=== PATIENT | male | born 1975 | race Caucasian/White ===

== ENCOUNTER 2017-05-31 22:06 | Observation (INO) | payer BC ==
[2017-05-31] MEDS ORDERED: Sodium Chloride 0.9% 1000 ML 1,000 ML IV STA (22:30)
[2017-05-31] MEDS ORDERED: TYLENOL 325 MG PO ONE (22:32)
[2017-05-31] MEDS ORDERED: TYLENOL 325 MG ONE (22:41)
[2017-05-31] MEDS ORDERED: Sodium Chloride 0.9% 1000 ML 1,000 ML ONE ×2 (22:41→23:59)
[2017-05-31 22:58] LABS: BASOPHIL % 0.1 % (0.0-0.4); Eosinophil % 0.1 % (0.00-5.0); Granulocytes % 84.6 % (36.0-66.0); Lymphocytes % 7.9 % (24.0-44.0); Mean Cell Volume 81.7 fl (78-100); Mean Corpuscular Hemoglobin 28.4 pg (26-32); Mean Platelet Volume 9.4 fl (6-9.5); Monocytes % 7.3 % (0.0-12.0); Platelet Count 203 K/mm3 (150-450); Red Blood Count 5.25 M/mm3 (4.1-5.6); Red Cell Distribution Width 13.6 % (11.5-14.0)
--- NOTE | 2017-05-31 23:15 | ERPHSYRPT ---
- History of Present Illness Source: patient, family (mom) Patient Subjective Stated Complaint: "i think i might have over heated today. i have been feeling really hot, sore throat, shakes, it egan when i peed. 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 No previous history of heat stroke. The still slightly dizzy but has not actually passed out. Brought to ER with his mother. No chest pain shortness of breath. Timing/Duration: today Fever Severity: severe Fever Therapy POWER PRESS TENDER: none Associated Symptoms: diaphoresis, muscle aches, sore throat, weakness International travel in last 2 weeks: No (doses) Allergies/Adverse Reactions: Penicillins Allergy (Verified 05/31/17 22:15) Home Medications: No Reportable Medications [No Reported Medications] 05/31/17 [History] - Review of Systems Constitutional: Fever, Chills, Fatigue, Lethargy, Malaise, Weakness Eyes: No Symptoms Ears, Nose, & Throat: No Symptoms Respiratory: No Symptoms Cardiac: No Symptoms Abdominal/Gastrointestinal: Nausea (TRANSIENT) Genitourinary Symptoms: No Symptoms Musculoskeletal: Myalgias Skin: No Symptoms Neurological: Headache (MILD), Lethargy Psychological: No Symptoms Endocrine: No Symptoms Hematologic/Lymphatic: No Symptoms Immunological/Allergic: No Symptoms (5) All Other Systems: Reviewed and Negative - Past Medical History Pertinent Past Medical History: No - Past Surgical History Past Surgical History: Yes Other Surgical History: bacl surgery - Social History Smoking Status: Never smoker Drug Use: none - Nursing Vital Signs Nursing Vital Signs: Initial Vital Signs Temperature 99.2 F 05/31/17 22:11 Pulse Rate 98 H 05/31/17 22:11 Respiratory Rate 16 05/31/17 22:11 Blood Pressure 164/86 05/31/17 22:11 O2 Sat by Pulse Oximetry 96 05/31/17 22:11 Pain Scale Pain Intensity 0 - Physical Exam General Appearance: moderate distress, alert, other (diaphoretic) Eye Exam: PERRL/EOMI ENT Exam: pharyngeal erythema Neck Exam: normal inspection, non-tender, supple, full range of motion, trachea midline, No JVD, No limited range of motion, No Brudzinski's sign Respiratory Exam: chest non-tender, lungs clear, decreased air movement Cardiovascular/Chest Exam: normal heart sounds, regular rate/rhythm Gastrointestinal/Abdominal Exam: soft, non tender, no distention Male Genitalia: normal genitalia Rectal Exam: deferred Extremity Exam: non-tender, normal range of motion, normal inspection Neurologic Exam: 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, 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 tested Skin Exam: normal color, warm, dry, No rash Lymphatic: No adenopathy SpO2 Interpretation: normal SpO2: 96 Oxygen Delivery: Room Air - Course Nursing assessment & vital signs reviewed: Yes EKG Interpreted by Me: RATE (85), Sinus Rhythm, NORMAL AXIS, NORMAL INTERVALS, NORMAL QRS, Non-specific ST Changes, Other (no previous for comparison) - Radiology Exams Chest X-ray Interpretation: Reviewed by me, Discussed w/ radiologist, Negative Ordered Tests: Active Orders 24 hr Category Date Time Status Admission/Status Order ROUTINE Care 06/01/17 03:21 Active Commutator Tester STAT Care 05/31/17 22:30 Active Code Status Order ROUTINE Care 06/01/17 03:21 Active EKG-ER Only STAT Care 05/31/17 22:30 Completed IV Care Q6H Care 06/01/17 03:21 Active IV Insertion STAT Care 05/31/17 22:30 Completed Oxygen-ED Only NASAL CANNULA 2 lpm Care 05/31/17 22:33 Active Pulse Oximetry (ED) STAT Care 05/31/17 22:57 Active CHEST 1 VIEW (PORTABLE) Stat Exams 05/31/17 23:34 Taken BLOOD CULTURE Stat Lab 05/31/17 22:53 Received CBC W DIFF AM.LAB Lab 06/01/17 04:00 Ordered CBC W DIFF Stat Lab 05/31/17 22:52 Completed CK-Creatinine Phosphokinase Stat Lab 05/31/17 22:52 Completed CMP AM.LAB Lab 06/01/17 04:00 Ordered CMP Stat Lab 05/31/17 22:52 Completed CULTURE, THROAT Stat Lab 05/31/17 22:54 Received Lactic Acid AM.LAB Lab 06/01/17 04:00 Ordered Lactic Acid Stat Lab 05/31/17 22:50 Completed MAGNESIUM AM.LAB Lab 06/01/17 04:00 Ordered MAGNESIUM Stat Lab 05/31/17 22:52 Completed STREP SCREEN-BETA A Stat Lab 05/31/17 22:54 Completed TROPONIN Q3H Lab 05/31/17 22:53 Completed UA W/ MICROSCOPIC Stat Lab 05/31/17 22:52 Completed Oxygen NASAL CANNULA 2 lpm RT 06/01/17 03:21 Active Transfer Order Routine Transfer 06/01/17 01:55 Completed Medication Summary Generic Name Dose Route Start Last Admin Trade Name Reina PRN Reason Stop Dose Admin Acetaminophen 650 mg 06/01/17 02:03 Tylenol 325 Mg PO 07/01/17 02:02 Q6H PRN PRN PAIN AND/OR FEVER Lactated Ringer's 1,000 mls @ 125 mls/hr 06/01/17 03:21 06/01/17 03:27 Lactated Ringers IV 07/01/17 03:20 125 mls/hr .Q8H RACHELLE Administration Meropenem 1 g/ Sodium Chloride 100 mls @ 200 mls/hr 06/01/17 06:00 IV 07/01/17 05:59 Q8HT RACHELLE Ondansetron HCl 4 mg 06/01/17 03:21 Zofran 4 Mg/2 Ml Vial IV 07/01/17 03:20 Q6H PRN PRN NAUSEA/VOMITING Discontinued Medications Generic Name Dose Route Start Last Admin Trade Name Reina PRN Reason Stop Dose Admin Acetaminophen 975 mg 05/31/17 22:32 05/31/17 22:43 Tylenol 325 Mg PO 05/31/17 22:33 975 mg STAT ONE Administration Acetaminophen Confirm 05/31/17 22:41 Tylenol 325 Mg Administered 05/31/17 22:42 Dose 975 mg .ROUTE .STK-MED ONE Sodium Chloride 1,000 mls @ 999 mls/hr 05/31/17 22:30 05/31/17 22:43 Sodium Chloride 0.9% 1000 Ml IV 05/31/17 23:30 999 mls/hr .Q1H1M STA Administration Sodium Chloride Confirm 05/31/17 22:41 Sodium Chloride 0.9% 1000 Ml Administered 05/31/17 22:42 Dose 1,000 mls @ ud .ROUTE .STK-MED ONE Meropenem 1 g/ Sodium Chloride 100 mls @ 200 mls/hr 05/31/17 23:54 06/01/17 00:12 IV 06/01/17 00:23 200 mls/hr STAT STA Administration Lactated Ringer's 1,000 mls @ 999 mls/hr 05/31/17 23:58 06/01/17 00:11 Lactated Ringers IV 06/01/17 00:58 999 mls/hr .Q1H1M ONE Administration Sodium Chloride Confirm 05/31/17 23:59 Sodium Chloride 0.9% 1000 Ml Administered 06/01/17 00:00 Dose 1,000 mls @ ud .ROUTE .STK-MED ONE Sodium Chloride Confirm 05/31/17 23:59 Sodium Chloride 0.9% 100 Ml Ivpb Administered 06/01/17 00:00 Dose 100 mls @ ud IV .STK-MED ONE Sodium Chloride 1,000 mls @ 999 mls/hr 06/01/17 00:07 06/01/17 00:09 Sodium Chloride 0.9% 1000 Ml IV 06/01/17 01:07 Not Given .Q1H1M STA Lactated Ringer's Confirm 06/01/17 00:10 Lactated Ringers Administered 06/01/17 00:11 Dose 1,000 mls @ ud IV .STK-MED ONE Magnesium Oxide 400 mg 06/01/17 00:38 06/01/17 00:58 Mag-Ox 400 PO 06/01/17 00:39 400 mg STAT STA Administration Magnesium Oxide Confirm 06/01/17 00:57 Mag-Ox 400 Administered 06/01/17 00:58 Dose 400 mg .ROUTE .STK-MED ONE Meropenem Confirm 05/31/17 23:59 Merrem 1 Gm Administered 06/01/17 00:00 Dose 1 g IV .STK-MED ONE Lab/Rad Data: Laboratory Result Diagrams 05/31/17 22:52 05/31/17 22:52 Laboratory Results 05/31/17 05/31/17 05/31/17 Range/Units 23:34 22:54 22:53 WBC (4.0-10.5) K/mm3 RBC (4.1-5.6) M/mm3 Hgb (12.5-18.0) gm/dl Hct (42-50) % MCV (78-100) fl MCH (26-32) pg MCHC (32-36) g/dl RDW (11.5-14.0) % Plt Count (150-450) K/mm3 MPV (6-9.5) fl Gran % (36.0-66.0) % Lymphocytes % (24.0-44.0) % Monocytes % (0.0-12.0) % Eosinophils % (0.00-5.0) % Basophils % (0.0-0.4) % Basophils # (0-0.4) Sodium (136-145) mEq/L Potassium (3.5-5.1) mEq/L Chloride (98-107) mEq/L Carbon Dioxide (21-32) mEq/L Anion Gap (5-15) MEQ/L BUN (9-20) mg/dL Creatinine (0.55-1.30) mg/dl Estimated GFR ML/MIN Glucose (70-110) MG/DL Lactic Acid (0.4-2.0) Calcium (8.5-10.1) mg/dL Magnesium (1.8-2.4) mg/dL Total Bilirubin (0.2-1.0) mg/dL AST (15-37) U/L ALT (12-78) U/L Alkaline Phosphatase (46-116) U/L Creatine Kinase (39-308) U/L Troponin I < 0.017 (0.000-0.056) ng/ml Serum Total Protein (6.4-8.2) gm/dL Albumin (3.4-5.0) g/dL Ur Collection Type Urine Color (YELLOW) Urine Appearance (CLEAR) Urine pH (5-6) Ur Specific Bally (1.005-1.025) Urine Protein (Negative) Urine Ketones (NEGATIVE) Urine Blood (0-5) Bentley/ul Urine Nitrite (NEGATIVE) Urine Bilirubin (NEGATIVE) Urine Urobilinogen (0-1) mg/dL Ur Leukocyte Esterase (NEGATIVE) Urine Microscopic RBC (0-2) /HPF Urine Microscopic WBC (0-5) /HPF Ur Epithelial Cells (FEW) /HPF Urine Bacteria (NEGATIVE) /HPF Urine Glucose (NEGATIVE) mg/dL Influenza Type A Ag NEGATIVE (NEGATIVE) Influenza Type B Ag NEGATIVE (NEGATIVE) RSV (PCR) NEGATIVE (Negative) Streptococcus Screen NEGATIVE (Negative) Specimen Received 07/19/17 07/19/17 07/19/17 Range/Units 22:52 22:52 22:52 WBC (4.0-10.5) K/mm3 RBC (4.1-5.6) M/mm3 Hgb (12.5-18.0) gm/dl Hct (42-50) % MCV (78-100) fl MCH (26-32) pg MCHC (32-36) g/dl RDW (11.5-14.0) % Plt Count (150-450) K/mm3 MPV (6-9.5) fl Gran % (36.0-66.0) % Lymphocytes % (24.0-44.0) % Monocytes % (0.0-12.0) % Eosinophils % (0.00-5.0) % Basophils % (0.0-0.4) % Basophils # (0-0.4) Sodium 137 (136-145) mEq/L Potassium 3.7 (3.5-5.1) mEq/L Chloride 101 (98-107) mEq/L Carbon Dioxide 25.1 (21-32) mEq/L Anion Gap 14.5 (5-15) MEQ/L BUN 18 (9-20) mg/dL Creatinine 1.46 H (0.55-1.30) mg/dl Estimated GFR 56 ML/MIN Glucose 128 H (70-110) MG/DL Lactic Acid (0.4-2.0) Calcium 9.1 (8.5-10.1) mg/dL Magnesium 1.5 L (1.8-2.4) mg/dL Total Bilirubin 1.20 H (0.2-1.0) mg/dL AST 17 (15-37) U/L ALT 22 (12-78) U/L Alkaline Phosphatase 56 (46-116) U/L Creatine Kinase 212 (39-308) U/L Troponin I (0.000-0.056) ng/ml Serum Total Protein 7.3 (6.4-8.2) gm/dL Albumin 4.0 (3.4-5.0) g/dL Ur Collection Type VOID Urine Color YELLOW (YELLOW) Urine Appearance CLEAR (CLEAR) Urine pH 5.0 (5-6) Ur Specific Bally 1.015 (1.005-1.025) Urine Protein NEGATIVE (Negative) Urine Ketones SMALL (NEGATIVE) Urine Blood 50 (0-5) Bentley/ul Urine Nitrite NEGATIVE (NEGATIVE) Urine Bilirubin NEGATIVE (NEGATIVE) Urine Urobilinogen NORMAL (0-1) mg/dL Ur Leukocyte Esterase NEGATIVE (NEGATIVE) Urine Microscopic RBC 2-5 (0-2) /HPF Urine Microscopic WBC 0-2 (0-5) /HPF Ur Epithelial Cells FEW (FEW) /HPF Urine Bacteria FEW (NEGATIVE) /HPF Urine Glucose NEGATIVE (NEGATIVE) mg/dL Influenza Type A Ag (NEGATIVE) Influenza Type B Ag (NEGATIVE) RSV (PCR) (Negative) Streptococcus Screen (Negative) Specimen Received 05/31/17 2300 05/31/17 05/31/17 Range/Units 22:52 22:50 WBC 18.0 H (4.0-10.5) K/mm3 RBC 5.25 (4.1-5.6) M/mm3 Hgb 14.9 (12.5-18.0) gm/dl Hct 42.9 (42-50) % MCV 81.7 (78-100) fl MCH 28.4 (26-32) pg MCHC 34.7 (32-36) g/dl RDW 13.6 (11.5-14.0) % Plt Count 203 (150-450) K/mm3 MPV 9.4 (6-9.5) fl Gran % 84.6 H (36.0-66.0) % Lymphocytes % 7.9 L (24.0-44.0) % Monocytes % 7.3 (0.0-12.0) % Eosinophils % 0.1 (0.00-5.0) % Basophils % 0.1 (0.0-0.4) % Basophils # 0.02 (0-0.4) Sodium (136-145) mEq/L Potassium (3.5-5.1) mEq/L Chloride (98-107) mEq/L Carbon Dioxide (21-32) mEq/L Anion Gap (5-15) MEQ/L BUN (9-20) mg/dL Creatinine (0.55-1.30) mg/dl Estimated GFR ML/MIN Glucose (70-110) MG/DL Lactic Acid 0.8 (0.4-2.0) Calcium (8.5-10.1) mg/dL Magnesium (1.8-2.4) mg/dL Total Bilirubin (0.2-1.0) mg/dL AST (15-37) U/L ALT (12-78) U/L Alkaline Phosphatase (46-116) U/L Creatine Kinase (39-308) U/L Troponin I (0.000-0.056) ng/ml Serum Total Protein (6.4-8.2) gm/dL Albumin (3.4-5.0) g/dL Ur Collection Type Urine Color (YELLOW) Urine Appearance (CLEAR) Urine pH (5-6) Ur Specific Bally (1.005-1.025) Urine Protein (Negative) Urine Ketones (NEGATIVE) Urine Blood (0-5) Bentley/ul Urine Nitrite (NEGATIVE) Urine Bilirubin (NEGATIVE) Urine Urobilinogen (0-1) mg/dL Ur Leukocyte Esterase (NEGATIVE) Urine Microscopic RBC (0-2) /HPF Urine Microscopic WBC (0-5) /HPF Ur Epithelial Cells (FEW) /HPF Urine Bacteria (NEGATIVE) /HPF Urine Glucose (NEGATIVE) mg/dL Influenza Type A Ag (NEGATIVE) Influenza Type B Ag (NEGATIVE) RSV (PCR) (Negative) Streptococcus Screen (Negative) Specimen Received - Progress Progress: improved, re-examined Progress Note: 06/01/17 01:37Decrease in temperature and patient feeling much improved with no further diaphoresis. Moderately severe hypomagnesemia. Elevated white blood cell count with left shift but no source of infection noted but started on broad -spectrum antibiotic. Case discussed at length with Dr. Khan patient would be admitted observation with continued IV fluids temperature monitoring recheck of a.m. labs which is attributed to the patient. Discussed with : Bill Counseled pt/family regarding: lab results, diagnosis, need for follow-up, rad results - Departure Time of Disposition: 01:34 Departure Disposition: Observation Clinical Impression: Hypomagnesemia, heat-related illness with fever, rule out occult infection/ sepsis Heat exhaustion Qualifiers: Encounter type: initial encounter Qualified Code(s): T67.5XXA - Heat exhaustion , unspecified, initial encounter Condition: Stable Critical Care Time: No
[2017-05-31 23:27] LABS: ADD URINE CULTURE? NO (NO); ANION GAP 14.5 MEQ/L (5-15); BILIRUBIN,TOTAL 1.2 mg/dL (0.2-1.0); Bacteria FEW /HPF (NEGATIVE); Bilirubin NEGATIVE (NEGATIVE); Blood 50 Ery/ul (0-5); COMPLETE URINE MICROSCOPIC? YES; Carbon Dioxide 25.1 mEq/L (21-32); Collection Type VOID; Epithelial Cells FEW /HPF (FEW); Glucose NEGATIVE (NEGATIVE); Leukocyte Esterase NEGATIVE (NEGATIVE); MAGNESIUM 1.5 mg/dL (1.8-2.4); Potassium 3.7 mEq/L (3.5-5.1); Total Protein 7.3 gm/dL (6.4-8.2); WBC 0-2 /HPF (0-5)
[2017-05-31] MEDS ORDERED: Merrem 1 GM 1 G in Sodium Chloride 100ML MINI-BAG PLUS 100 ML IV STA (23:54)
[2017-05-31] MEDS ORDERED: Lactated Ringers 1,000 ML IV ONE (23:58)
[2017-05-31] MEDS ORDERED: Sodium Chloride 0.9% 100 ML IVPB 100 ML IV ONE (23:59)
[2017-05-31] MEDS ORDERED: Merrem 1 GM IV ONE (23:59)
[2017-06-01] MEDS ORDERED: Sodium Chloride 0.9% 1000 ML 1,000 ML IV STA (00:07)
[2017-06-01] MEDS ORDERED: Lactated Ringers 1,000 ML IV ONE (00:10)
[2017-06-01] MEDS ORDERED: MAG-OX 400 PO STA (00:38)
[2017-06-01] MEDS ORDERED: MAG-OX 400 ONE (00:57)
[2017-06-01] MEDS ORDERED: TYLENOL 325 MG PO PRN (02:03)
[2017-06-01] MEDS ORDERED: Zofran 4 MG/2 ML VIAL IV PRN (03:21)
[2017-06-01] MEDS: Lactated Ringers 1,000 ML IV SCH ×3 (03:27→21:12)
[2017-06-01] MEDS ORDERED: Merrem 1 GM IV ONE (05:30)
[2017-06-01] MEDS ORDERED: Sodium Chloride 0.9% 100 ML IVPB 100 ML IV ONE (05:31)
[2017-06-01 05:47] LABS: BASOPHIL % 0.1 % (0.0-0.4); Eosinophil % 0.1 % (0.00-5.0); Granulocytes % 83.8 % (36.0-66.0); Lymphocytes % 8.6 % (24.0-44.0); Mean Cell Volume 82.9 fl (78-100); Mean Corpuscular Hemoglobin 28.8 pg (26-32); Mean Platelet Volume 9.3 fl (6-9.5); Monocytes % 7.4 % (0.0-12.0); Platelet Count 155 K/mm3 (150-450); Red Cell Distribution Width 13.7 % (11.5-14.0); White Blood Count 17.5 K/mm3 (4.0-10.5)
[2017-06-01] MEDS ORDERED: Merrem 1 GM 1 G in Sodium Chloride 100ML MINI-BAG PLUS 100 ML IV SCH (06:00)
[2017-06-01 06:20] LABS: ALBUMIN 3.4 g/dL (3.4-5.0); ALKALINE PHOSPHATASE 51 U/L (46-116); ANION GAP 11.3 MEQ/L (5-15); BLOOD UREA NITROGEN 14 mg/dL (9-20); CHLORIDE 105 mEq/L (98-107); Carbon Dioxide 27.2 mEq/L (21-32); Glucose 104 MG/DL (70-110); MAGNESIUM 1.7 mg/dL (1.8-2.4); SGOT/AST 15 U/L (15-37); SGPT/ALT 21 U/L (12-78); SODIUM 140 mEq/L (136-145); Total Protein 6.4 gm/dL (6.4-8.2)
--- NOTE | 2017-06-01 08:41 | PCM.HP ---
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 He developed a headache, nausea and cramping. He also developed fever so came to the ER for evaluation. - Review of Systems Constitutional: Fever, Chills Respiratory: No Cough, No Short Of Breath Cardiac: No Chest Pain, No Edema, No Syncope Musculoskeletal: Myalgias Skin: No Rash Medications & Allergies Home Medications: Home Medication List No Reportable Medications [No Reported Medications] 05/31/17 [History Confirmed 05/31/17] Allergies/Adverse Reactions: Allergies Allergy/AdvReac Type Severity Reaction Status Date / Time Penicillins Allergy Verified 05/31/17 22:15 - Past Medical History Past Medical History: No - Past Surgical History Past Surgical History: Yes Other Surgical History: bacl surgery - Social History Smoking Status: Never smoker Alcohol: Occasionally Drug Use: none - Physical Exam Vital Signs: Vital Signs - 24 hr Temp Pulse Resp BP BP Pulse Ox 06/01/17 07:29 97.9 F 81 18 137/72 92 L 06/01/17 06:00 19 06/01/17 05:02 96 06/01/17 04:00 98.3 F 74 19 130/71 95 06/01/17 03:45 98 06/01/17 03:25 98.3 F 74 19 130/71 95 06/01/17 02:31 74 14 134/70 99 06/01/17 01:05 98.4 F 90 24 127/82 98 05/31/17 23:56 84 32 H 130/70 97 05/31/17 23:44 95 05/31/17 23:00 101.6 F 84 18 137/68 96 05/31/17 22:11 99.2 F 98 H 16 164/86 96 Oxygen-Last 24 hours O2 Percentage 2 Liters = 28% O2 Percentage 2 Liters = 28% O2 Percentage 2 Liters = 28% O2 Percentage 2 Liters = 28% General Appearance: no apparent distress, alert Neurologic Exam: alert, oriented x 3, cooperative, normal mood/affect, nml cerebellar function, nml station & gait, sensation nml, No motor deficits Eye Exam: PERRL/EOMI, eyes nml inspection Neck Exam: normal inspection, non-tender, supple, full range of motion Respiratory Exam: normal breath sounds, lungs clear, No respiratory distress Cardiovascular Exam: regular rate/rhythm, normal heart sounds, normal peripheral pulses Gastrointestinal/Abdomen Exam: soft, normal bowel sounds, No tenderness, No mass Extremity Exam: normal inspection, normal range of motion, pelvis stable Results - Labs Lab/Micro Results: Lab Results-Last 24 Hours 06/01/17 06/01/17 06/01/17 Range/Units 05:28 05:40 05:40 WBC 17.5 H (4.0-10.5) K/mm3 RBC 4.90 (4.1-5.6) M/mm3 Hgb 14.1 (12.5-18.0) gm/dl Hct 40.6 L (42-50) % MCV 82.9 (78-100) fl MCH 28.8 (26-32) pg MCHC 34.7 (32-36) g/dl RDW 13.7 (11.5-14.0) % Plt Count 155 (150-450) K/mm3 MPV 9.3 (6-9.5) fl Gran % 83.8 H (36.0-66.0) % Lymphocytes % 8.6 L (24.0-44.0) % Monocytes % 7.4 (0.0-12.0) % Eosinophils % 0.1 (0.00-5.0) % Basophils % 0.1 (0.0-0.4) % Basophils # 0.02 (0-0.4) Sodium 140 (136-145) mEq/L Potassium 4.0 (3.5-5.1) mEq/L Chloride 105 (98-107) mEq/L Carbon Dioxide 27.2 (21-32) mEq/L Anion Gap 11.3 (5-15) MEQ/L BUN 14 (9-20) mg/dL Creatinine 1.25 (0.55-1.30) mg/dl Estimated GFR > 60 ML/MIN Glucose 104 (70-110) MG/DL Lactic Acid 0.7 (0.4-2.0) Calcium 8.8 (8.5-10.1) mg/dL Magnesium 1.7 L (1.8-2.4) mg/dL Total Bilirubin 1.20 H (0.2-1.0) mg/dL AST 15 (15-37) U/L ALT 21 (12-78) U/L Alkaline Phosphatase 51 (46-116) U/L Serum Total Protein 6.4 (6.4-8.2) gm/dL Albumin 3.4 (3.4-5.0) g/dL Assessment/Plan (1) Heat exhaustion Current Visit: Yes Status: Acute Qualifiers: Encounter type: initial encounter Qualified Code(s): T67.5XXA - Heat exhaustion, unspecified, initial encounter Assessment & Plan: continue hydration, repeat lytes in am, will replace magnesium. symptoms have improved Code(s): T67.5XXA - HEAT EXHAUSTION, UNSPECIFIED, INITIAL ENCOUNTER (2) Leukocytosis Current Visit: Yes Status: Acute Assessment & Plan: continue abx and repeat cbc in am, stop meropenem due to no obvious infection source, cover emperically with rocephin at this time Code(s): D72.829 - ELEVATED WHITE BLOOD CELL COUNT, UNSPECIFIED (3) Fever Current Visit: Yes Status: Acute Assessment & Plan: blood cultures pending Code(s): R50.9 - FEVER, UNSPECIFIED (4) Hypomagnesemia Current Visit: Yes Status: Acute Assessment & Plan: will continue to replace, up to 1.7 from 1.5 Code(s): E83.42 - HYPOMAGNESEMIA
--- NOTE | 2017-06-01 08:42 | XRAY ---
Indication: Fever, chills, and weakness. Comparison: January 06, 2016. Portable chest again demonstrates normal heart, lungs, and bony thorax with incidental scattered calcified granulomas. Comment: Preliminary interpretation was made by [facility]. No discrepancy.
[2017-06-01] MEDS: ROCEPHIN 1 Gm-D5w 50 ml Bag** 1 G/50 ML IVPB IV SCH (10:53)
[2017-06-01] MEDS: MAG-OX 400 PO SCH ×2 (10:53→22:31)
[2017-06-02] MEDS: Lactated Ringers 1,000 ML IV SCH (05:12)
[2017-06-02 06:01] LABS: Mean Cell Volume 82.9 fl (78-100); Mean Corpuscular Hemoglobin 28.1 pg (26-32); Mean Platelet Volume 9.6 fl (6-9.5); Platelet Count 174 K/mm3 (150-450); Red Blood Count 5.09 M/mm3 (4.1-5.6); Red Cell Distribution Width 13.8 % (11.5-14.0); White Blood Count 10.4 K/mm3 (4.0-10.5)
[2017-06-02 06:25] LABS: ALBUMIN 3.2 g/dL (3.4-5.0); ALKALINE PHOSPHATASE 48 U/L (46-116); ANION GAP 13.7 MEQ/L (5-15); BLOOD UREA NITROGEN 11 mg/dL (9-20); CHLORIDE 105 mEq/L (98-107); Carbon Dioxide 26.9 mEq/L (21-32); Glucose 100 MG/DL (70-110); Potassium 4.1 mEq/L (3.5-5.1); SGOT/AST 12 U/L (15-37); SGPT/ALT 20 U/L (12-78); SODIUM 142 mEq/L (136-145); Total Protein 6.6 gm/dL (6.4-8.2)
[2017-06-02 07:16] LABS: ATYPICAL LYMPHS 1 %; Eosinophil 1 % (0.00-3.0); Metamyelocyte 1 %; Platelet Estimate NORMAL (NORMAL); Poikilocytosis 1+; Total Cells Counted 100
[2017-06-02] MEDS: MAG-OX 400 PO SCH (08:29)
[2017-06-02] MEDS: ROCEPHIN 1 Gm-D5w 50 ml Bag** 1 G/50 ML IVPB IV SCH (08:29)
--- NOTE | 2017-06-02 08:29 | PCM.DS ---
Discharge Summary Date of Admission: 06/01/17 03:19 Admitting Physician: BRAYAN KELLEY Primary Care Provider: BRAYAN KELLEY Allergies Allergies Penicillins Allergy (Verified 05/31/17 22:15) Hospital Summary - Hospital Course Hospital Course: patient was admitted with heat exhaustion, had elevated white count and fever as well. no obvious infection source, complained of ear pain and throat pain. symptoms resolved with hydration and rocephin. no headache now, feels well, tolerating po intake. - Vitals & Intake/Output Vital Signs: Vital Signs Temperature 98 F 06/02/17 07:34 Pulse Rate 67 06/02/17 07:34 Respiratory Rate 18 06/02/17 07:34 Blood Pressure 136/65 06/02/17 07:34 O2 Sat by Pulse Oximetry 98 06/02/17 07:37 Oxygen-Last Documented O2 Percentage 2 Liters = 28% Intake & Output: Intake & Output 05/30/17 05/31/17 06/01/17 06/02/17 11:59 11:59 11:59 11:59 Intake Total 480 3633 Output Total 300 1000 Balance 180 2633 Weight 101.803 kg - Lab Result Diagrams: 06/02/17 05:49 06/02/17 05:49 Lab Results-Last 24 Hrs: Lab Results-Last 24 Hours 06/02/17 06/02/17 06/02/17 Range/Units 05:49 05:49 05:49 WBC 10.4 (4.0-10.5) K/mm3 RBC 5.09 (4.1-5.6) M/mm3 Hgb 14.3 (12.5-18.0) gm/dl Hct 42.2 (42-50) % MCV 82.9 (78-100) fl MCH 28.1 (26-32) pg MCHC 33.9 (32-36) g/dl RDW 13.8 (11.5-14.0) % Plt Count 174 (150-450) K/mm3 MPV 9.6 H (6-9.5) fl Segmented Neutrophils 55 (36.-66.) % Lymphocytes (Manual) 32 (24-44) % Monocytes (Manual) 10 (0.0-12.0) % Eosinophils (Manual) 1 (0.00-3.0) % Metamyelocytes 1 % Differential Comment ABNORMAL Atypical Lymphocytes 1 % Platelet Estimate NORMAL (NORMAL) Poikilocytosis 1+ Sodium 142 (136-145) mEq/L Potassium 4.1 (3.5-5.1) mEq/L Chloride 105 (98-107) mEq/L Carbon Dioxide 26.9 (21-32) mEq/L Anion Gap 13.7 (5-15) MEQ/L BUN 11 (9-20) mg/dL Creatinine 1.15 (0.55-1.30) mg/dl Estimated GFR > 60 ML/MIN Glucose 100 (70-110) MG/DL Calcium 8.8 (8.5-10.1) mg/dL Magnesium 1.9 (1.8-2.4) mg/dL Total Bilirubin 0.50 (0.2-1.0) mg/dL AST 12 L (15-37) U/L ALT 20 (12-78) U/L Alkaline Phosphatase 48 (46-116) U/L Serum Total Protein 6.6 (6.4-8.2) gm/dL Albumin 3.2 L (3.4-5.0) g/dL Discharge Exam General Appearance: no apparent distress, alert Skin Exam: normal color, warm, dry Ears, Nose, Throat Exam: normal ENT inspection, pharynx normal, moist mucous membranes Neck Exam: normal inspection, non-tender, supple, full range of motion Respiratory Exam: normal breath sounds, lungs clear, No respiratory distress Cardiovascular Exam: regular rate/rhythm, normal heart sounds Gastrointestinal/Abdomen Exam: soft, No tenderness, No mass Extremity Exam: normal inspection, normal range of motion Final Diagnosis/Problem List - Final Discharge Diagnosis/Problem (1) Heat exhaustion Current Visit: Yes Status: Acute (2) Leukocytosis Current Visit: Yes Status: Acute (3) Fever Current Visit: Yes Status: Acute (4) Hypomagnesemia Current Visit: Yes Status: Acute - Discharge Disposition: Home, Self-Care Condition: Stable Prescriptions: New Azithromycin 250 mg [Zithromax 250 MG TABLET] 250 mg PO ZPACK #6 tablet Follow up with: BRAYAN KELLEY MD [Primary Care Provider] -
[2017-06-02 11:02] VITALS: BP 142/73; PULSE 59; O2SAT 99
== END 2017-06-02 11:15 | disposition home or self-care (01) ==
LOC: ED 22:06 → MED SURG 06-01 03:19
PROVIDERS: ADMIT Family Medicine; ATTEND Family Medicine
DX: T67.5XXA Heat exhaustion, unspecified, initial encounter (principal); D72.829 Elevated white blood cell count, unspecified; R50.9 Fever, unspecified; E83.42 Hypomagnesemia
CPT/HCPCS: 36000; 36415; 71010; 80053; 81000; 82550; 83605; 83735; 84484; 85025; 87040; 87070; 87430; 87631; 93005; 93041; 93268; 94760; 96360; 96361; 96365; 99285; G0378; J0696; A9270-GY

== ENCOUNTER 2018-02-12 08:54 | Day surgery (SDC) | payer BC ==
--- NOTE | 2018-02-12 08:10 | HP ---
DATE OF SURGERY: 02/12/2018 HISTORY OF PRESENT ILLNESS: The patient is a 42 year-old who over the past ten months having back cysts or nodules increasing in size up and down a couple of times, tried some antibiotic trial and it was felt he had infected back cyst or nodule. Concern about future infection and desires excision. PAST MEDICAL HISTORY: He denies any chronic illnesses. PAST SURGICAL HISTORY: Back surgery in the past. MEDICATIONS: None in the past. ALLERGIES: PENICILLIN. FAMILY HISTORY: Negative in regards to this problem. SOCIAL HISTORY: No smoking or alcohol abuse. REVIEW OF SYSTEMS: Twelve systems reviewed per admission assessment. No chest pain or palpitations other systems negative or noncontributory as above and per preadmission questionnaire. PHYSICAL EXAMINATION: GENERAL: No acute distress. HEENT: Sclerae nonicteric. NECK: No JVD. CHEST: Equal excursion, nonlabored breathing. CVS: Regular rate and rhythm. ABDOMEN: Soft, nontender. EXTREMITIES: No significant edema. NEURO: Alert, oriented, moving extremities symmetrically. No gross motor deficits noted. BACK: Nodule or cyst risk of recurrent infection. It is felt he would benefit from excision. IMPRESSION: Enlarging recurrent infected back cyst or nodule. I feel the patient will benefit from excisional biopsy. Risks and benefits explained in detail but not limited to bleeding or infection, risk of aches, pains, burning and numbness, risk of hematoma or seroma formation, risk of wound dehiscence possibly requiring packing, general risk of anesthesia, deep venous thrombosis, pulmonary embolism and pneumonia but not limited to. He understands and agrees to the planned procedure. We will proceed with excisional biopsy of back cyst or nodule as an outpatient.
[~2018-02-12 08:54] MED LIST: Lactated Ringers 0 ML IV ONE; Lactated Ringers 1,000 ML IV ONE; Lactated Ringers 1,000 ML IV SCH; Sensorcaine 0.25% 10 ML ONE
[2018-02-12] MEDS ORDERED: Zofran 4 MG/2 ML VIAL IV ONE (08:55)
[2018-02-12] MEDS ORDERED: Decadron 4 MG INJ IV ONE (08:55)
[2018-02-12] MEDS ORDERED: SUBLIMAZE 100 MCG/2 ML IV ONE (08:55)
[2018-02-12] MEDS ORDERED: DIPRIVAN 200 MG/20 ML IV ONE (08:55)
[2018-02-12] MEDS ORDERED: TORAdol 30 mg Injection IV ONE (08:55)
[2018-02-12 09:26] VITALS: O2SAT 99
[2018-02-12] MEDS ORDERED: Levofloxacin 500MG/100ML D5W 500 MG/100 ML BAG IV ONE (11:00)
[2018-02-12 12:33] VITALS: BP 146/89; PULSE 63
--- NOTE | 2018-02-12 15:28 | OP ---
SURGERY DATE/TIME: 02/12/2018 1057 PREOPERATIVE DIAGNOSIS: Persistent ruptured back cyst site back. POSTOPERATIVE DIAGNOSIS: Persistent ruptured back cyst site back. PROCEDURE: Excisional biopsy ruptured back cyst site (approximately 2 cm including the surrounding inflammation with margin) with intermediate closure. SURGEON: Dr. Tiago Simeon. ANESTHESIA: General. ESTIMATED BLOOD LOSS: Minimal. INDICATIONS: As noted above. Risks and benefits explained in detail and not limited to and consent obtained. DESCRIPTION OF PROCEDURE AND FINDINGS: The patient is taken to the operating room. General anesthesia introduced. He was placed in lateral position, prepped and draped in usual sterile fashion. After official time out and no disagreement with planned procedure, marking out in spindle-shaped fashion including small rim of skin over the top. Dissection carried down circumferentially. He did have ruptured cyst in deeper with some reaction around it and was able to stay out lateral around this cyst and deep to it and it was passed off for pathology. It measured about 2 cm with margins with surrounding reaction. Good hemostasis noted. There were no signs of any obvious residual cyst wall material in the wound. Good hemostasis noted. It was then closed in layers in intermediate fashion with interrupted 3-0 Vicryl closing deep superficial subcu. Skin closed with 4-0 Vicryl with some interrupted 3-0 Prolene used to reinforce the area given the location on the back. Sterile dressing applied. The patient tolerated the procedure well. There were no immediate complications. Findings discussed with the family out in the waiting area. He was transferred to the recovery room in stable condition.
== END 2018-02-12 12:37 | disposition home or self-care (01) ==
LOC: SDC 08:54
PROVIDERS: ATTEND Surgery
PROC: 0JQ70ZZ Repair Back Subcutaneous Tissue and Fascia, Open Approach (ICD-10-PCS; principal; 2018-02-12)
PROC: 0HB6XZZ Excision of Back Skin, External Approach (ICD-10-PCS; 2018-02-12)
DX: R20.8 Other disturbances of skin sensation (principal)
CPT/HCPCS: 88304; 94250; J1100; J1885; J1956; J2405; J2704; J3010

== ENCOUNTER 2018-04-29 11:01 | Emergency (ER) | payer BC ==
[2018-04-29] MEDS ORDERED: Norco 10/325 MG Tablet PO ONE (11:33)
[2018-04-29] MEDS ORDERED: Norco 10/325 MG Tablet ONE (11:37)
--- NOTE | 2018-04-29 11:37 | ERPHSYRPT ---
- History of Present Illness Time Seen by Provider: 04/29/18 11:25 Source: patient Exam Limitations: clinical condition Patient Subjective Stated Complaint: Pt states "I was playing softball rounding second and it felt like I was hit in the back of the ankle with something and then just pain. the pain is getting worse and i can barely move it" Triage Nursing Assessment: Pt alert and oriented X 3, skin pwd PT ambulates with a limp. Pt left ankle swollen posteriorly, red, tender, CSM X 4 Physician History: PATIENT STATES WHILE RUNNING PLAYING BASEBALL RUNNING AROUNDING BASE FELT SEVERE PAIN BEHIND HIS LEFT ANKLE ASSOCIATED WITH PAIN AND SWELLING. HAS MARKED PAIN UPON WEIGHT BEARING AND RANGE OF MOTION OF ANKLE Method of Injury: unknown Occurred: yesterday Quality: constant, throbbing Severity of Pain-Max: severe Severity of Pain-Current: severe Lower Extremities Pain: leg: left, ankle: left Modifying Factors: Improves With: movement Associated Symptoms: unable to bear weight (SEVERE PAIN) Allergies/Adverse Reactions: Penicillins Allergy (Mild, Verified 02/12/18 09:34) Rash strawberry Allergy (Verified 04/29/18 11:14) watermelon Allergy (Verified 04/29/18 11:14) Hx Tetanus, Diphtheria Vaccination/Date Given: Yes Hx Influenza Vaccination/Date Given: No Hx Pneumococcal Vaccination/Date Given: No Immunizations Up to Date: Yes - Review of Systems Constitutional: No Symptoms Musculoskeletal: Injury, Joint Pain, Joint Swelling - Past Medical History Pertinent Past Medical History: Yes Neurological History: No Pertinent History ENT History: No Pertinent History Cardiac History: No Pertinent History Respiratory History: No Pertinent History Endocrine Medical History: No Pertinent History Musculoskeletal History: Other GI Medical History: No Pertinent History History: No Pertinent History Psycho-Social History: No Pertinent History Male Reproductive Disorders: No Pertinent History Other Medical History: back pain - Past Surgical History Past Surgical History: Yes Neuro Surgical History: No Pertinent History Cardiac: No Pertinent History Respiratory: No Pertinent History Gastrointestinal: No Pertinent History Genitourinary: No Pertinent History Musculoskeletal: Orthopedic Surgery Male Surgical History: No Pertinent History Other Surgical History: back surgery-herniated disc repair about 10 yrs ago,. growth removed from back in february 2018 - Social History Smoking Status: Never smoker Exposure to second hand smoke: Yes Drug Use: none Patient Lives Alone: No - Nursing Vital Signs Nursing Vital Signs: Initial Vital Signs Temperature 98.4 F 04/29/18 11:08 Pulse Rate 78 04/29/18 11:08 Respiratory Rate 16 04/29/18 11:08 Blood Pressure 165/73 04/29/18 11:08 O2 Sat by Pulse Oximetry 99 04/29/18 11:08 Pain Scale Pain Intensity 9 - Physical Exam General Appearance: no apparent distress Legs Exam: left leg: pain (TENDERNESS LEFT MID CALF TO OVER ACHILLES WITH MODERATE SWELLING OVER DISTAL ACHILLES TENDON) Ankle Exam: left ankle: limited range of motion (MARKED LIMITED RANGE OF MOTION , SWELLING WITH TENDERNESS DISTAL ACHILLES. LEFT PEDIS PULSE 2+), pain Foot Exam: bilateral foot: non-tender, normal inspection SpO2 Interpretation: normal SpO2: 99 Oxygen Delivery: Room Air - Radiology Exams Left Lower Leg X-ray Interpretation: Interpreted by me (NO EVIDENCE OF FRACTURE OR DISLOCATION) Right Ankle X-ray Interpretation: Interpreted by me, Negative, No Fracture (SOFT TISSUE SWELLING.) Ordered Tests: Active Orders 24 hr Category Date Time Status Crutches STAT Care 04/29/18 11:32 Active Splint STAT Care 04/29/18 11:32 Active ANKLE (3 VIEWS) Stat Exams 04/29/18 12:04 Taken LOWER LEG Stat Exams 04/29/18 11:31 Taken Medication Summary Discontinued Medications Generic Name Dose Route Start Last Admin Trade Name Reina PRN Reason Stop Dose Admin Hydrocodone Bitart/Acetaminophen 1 tab 04/29/18 11:33 04/29/18 11:38 Tiffin 10/325 Mg Tablet PO 04/29/18 11:34 1 tab STAT ONE Administration Hydrocodone Bitart/Acetaminophen Confirm 04/29/18 11:37 Tiffin 10/325 Mg Tablet Administered 04/29/18 11:38 Dose 1 tab .ROUTE .STK-MED ONE - Progress Progress: pain not gone completely Progress Note: 04/29/18 11:58 ADMINISTERED NORCO 10/325 ORALLY, POSTERIOR ORTHOGLASS LEFT ANKLE SPLINT, AND CRUTCHES Counseled pt/family regarding: diagnosis, need for follow-up - Departure Time of Disposition: 12:34 Departure Disposition: Home Clinical Impression: LEFT ACHILLES TENDON TEAR Condition: Stable Critical Care Time: No Referrals: BRAYAN KELLEY MD [Primary Care Provider] - Additional Instructions: AMBULATE USING CRUTCHES NONWEIGHT BEARING LEFT FOOT UNTIL EVALUATED BY ORTHOPEDIC SURGEON. ELEVATE FOOT AND APPLY ICE OVER LOWER BRAGA AND ANKLE EVERY 4 HOURS,30 MINUTES FOR 48 HOURS. MOTRIN 600MG EVERY 6 HOURS FOR MILD TO MODERATE PAIN AND NORCO 10/325 EVERY 4 HOURS FOR SEVERE PAIN. FOLLOWUP WITH ORTHOPEDIC SURGEON DR SARAH CALL OFFICE FOR APPOINTMENT OR FOLLOWUP WITH [facility] TOMORROW. Prescriptions: Hydrocodone/APAP 10/325 mg [Tiffin 10/325 MG Tablet] 1 tab PO Q4H PRN PRN # 12 tablet MDD 4 PRN Reason: Pain Ibuprofen 600 mg PO Q6HPRN PRN #20 tablet PRN Reason: Pain
[2018-04-29 12:51] VITALS: BP 160/68; PULSE 80; O2SAT 98
--- NOTE | 2018-04-29 18:24 | XRAY ---
Indication: Pain following playing baseball. Comparison: None 3 views of the left ankle demonstrates mild medial soft tissue swelling. No other bony, articular, or soft tissue abnormalities.
--- NOTE | 2018-04-29 18:26 | XRAY ---
Indication: Pain following playing baseball. Comparison: None 2 views of the left lower leg obtained. No bony, articular, or soft tissue abnormalities.
== END 2018-04-29 12:40 | disposition home or self-care (01) ==
LOC: ED 11:01
DX: S86.022A Laceration of left Achilles tendon, initial encounter (principal); Y93.64 Activity, baseball
CPT/HCPCS: 73590; 73610; 99284; A9270-GY

== ENCOUNTER 2019-10-25 14:19 | Observation (INO) | payer BC ==
--- NOTE | 2019-10-25 14:41 | ERPHSYRPT ---
- History of Present Illness Time Seen by Provider: 10/25/19 14:35 Historian: patient Exam Limitations: no limitations Patient Subjective Stated Complaint: Pain in the RLQ that extends to mid abdomen , urinated once today and the color was brown, denies pain with urination, has only had 1 bottle of water today, kidney stone about 10 years ago Triage Nursing Assessment: Pt walked into the ER, hypertensive, rates pain 9/10 , bowel sounds heard in all 4 quadrants, pain with palpatation to the RLQ Physician History: 43 y/o white male, with no prior h/o abd surgeries, presents with right flank and rlq abd pain. pain is an ache and intermittent sharp pain. began last pm and now worse. nausea and diarrhea but no vomiting. never had before. Timing/Duration: yesterday, worse Activities at Onset: none Quality: cramping, stabbing Abdominal Pain Onset Location: RLQ, flank (right) Pain Radiation: flank Severity of Pain-Max: moderate Severity of Pain-Current: moderate Modifying Factors: Improves With: nothing Associated Symptoms: diaphoresis, nausea Previous symptoms: no prior history Allergies/Adverse Reactions: Penicillins Allergy (Mild, Verified 10/25/19 14:30) Rash bee pollen Allergy (Verified 10/25/19 14:30) bee venom protein (honey bee) Allergy (Verified 10/25/19 14:30) strawberry Allergy (Verified 10/25/19 14:30) watermelon Allergy (Verified 10/25/19 14:30) Home Medications: Gabapentin 100 mg PO TID 10/25/19 [History] Hx Tetanus, Diphtheria Vaccination/Date Given: Yes Hx Influenza Vaccination/Date Given: No Hx Pneumococcal Vaccination/Date Given: No - Review of Systems Constitutional: No Symptoms Eyes: No Symptoms Ears, Nose, & Throat: No Symptoms Respiratory: No Symptoms Cardiac: No Symptoms Abdominal/Gastrointestinal: Abdominal Pain, Nausea Genitourinary Symptoms: No Symptoms Musculoskeletal: No Symptoms Skin: No Symptoms Neurological: No Symptoms Psychological: No Symptoms Endocrine: No Symptoms Hematologic/Lymphatic: No Symptoms Immunological/Allergic: No Symptoms All Other Systems: Reviewed and Negative - Past Medical History Pertinent Past Medical History: Yes Neurological History: No Pertinent History ENT History: No Pertinent History Cardiac History: Hypertension Respiratory History: No Pertinent History Endocrine Medical History: No Pertinent History Musculoskeletal History: Osteoarthritis GI Medical History: No Pertinent History History: No Pertinent History Psycho-Social History: No Pertinent History Male Reproductive Disorders: No Pertinent History Other Medical History: past surgery on L-spine for herniated disc - Past Surgical History Past Surgical History: Yes Neuro Surgical History: No Pertinent History Cardiac: No Pertinent History Respiratory: No Pertinent History Gastrointestinal: No Pertinent History Genitourinary: No Pertinent History Musculoskeletal: Orthopedic Surgery Male Surgical History: No Pertinent History Other Surgical History: back surgery-herniated disc repair about 10 yrs ago,. growth removed from back in february 2018 - Social History Smoking Status: Never smoker Exposure to second hand smoke: Yes Drug Use: none Patient Lives Alone: No - Nursing Vital Signs Nursing Vital Signs: Initial Vital Signs Temperature 99.7 F 10/25/19 14:22 Pulse Rate 89 10/25/19 14:22 Blood Pressure 162/92 10/25/19 14:22 O2 Sat by Pulse Oximetry 98 10/25/19 14:22 Pain Scale Pain Intensity 9 - Physical Exam General Appearance: mild distress, alert, anxiety Eye Exam: PERRL/EOMI, eyes nml inspection Ears, Nose, Throat Exam: normal ENT inspection, moist mucous membranes Neck Exam: normal inspection, non-tender, supple, full range of motion Respiratory Exam: normal breath sounds, lungs clear, airway intact, No chest tenderness, No respiratory distress Cardiovascular Exam: regular rate/rhythm, normal heart sounds, normal peripheral pulses Gastrointestinal/Abdomen Exam: soft, normal bowel sounds, tenderness (right lq) , No guarding, No rebound Rectal Exam: not done Back Exam: normal inspection, normal range of motion, CVA tenderness (right), No vertebral tenderness Extremity Exam: normal inspection, normal range of motion, pelvis stable Neurologic Exam: alert, oriented x 3, cooperative, sound art instructor II-XII nml as tested Skin Exam: normal color, warm, dry Lymphatic Exam: No adenopathy SpO2 Interpretation: normal SpO2: 98 O2 Delivery: Room Air - Course Nursing assessment & vital signs reviewed: Yes Ordered Tests: Active Orders 24 hr Category Date Time Status ABDOMEN AND PELVIS W/0 CONTRAS [CT] Stat Exams 10/25/19 15:00 Completed AMYLASE Stat Lab 10/25/19 15:00 Completed CBC W DIFF Stat Lab 10/25/19 15:00 Completed CMP Stat Lab 10/25/19 15:00 Completed LIPASE Stat Lab 10/25/19 15:00 Completed Lactic Acid Stat Lab 10/25/19 14:58 Completed Manual Differential NC Stat Lab 10/25/19 15:00 Completed UA W/RFX UR CULTURE Stat Lab 10/25/19 14:59 Uncollected Medication Summary Discontinued Medications Generic Name Dose Route Start Last Admin Trade Name Reina PRN Reason Stop Dose Admin Hydromorphone HCl 1 mg 10/25/19 14:58 10/25/19 15:07 Hydromorphone 1 Mg/Ml Ampule IV 10/25/19 14:59 1 mg STAT ONE Administration Hydromorphone HCl Confirm 10/25/19 15:04 Hydromorphone 1 Mg/Ml Ampule Administered 10/25/19 15:05 Dose 1 mg .ROUTE .STK-MED ONE Hydromorphone HCl Confirm 10/25/19 16:02 Hydromorphone 1 Mg/Ml Ampule Administered 10/25/19 16:03 Dose 1 mg .ROUTE .STK-MED ONE Sodium Chloride 1,000 mls @ 999 mls/hr 10/25/19 14:58 10/25/19 16:26 Sodium Chloride 0.9% 1000 Ml IV 10/25/19 15:58 Infused .Q1H1M STA Infusion Sodium Chloride Confirm 10/25/19 15:04 Sodium Chloride 0.9% 1000 Ml Administered 10/25/19 15:05 Dose 1,000 mls @ ud .ROUTE .STK-MED ONE Cefoxitin Sodium 1 g in 50 mls @ 100 mls/hr 10/25/19 15:49 10/25/19 16:11 Mefoxin 1 Gm/ D5w 50 Ml IV 10/25/19 16:18 100 ml/hr STAT STA 100 mls/hr Administration Ondansetron HCl 4 mg 10/25/19 14:58 10/25/19 15:07 Zofran 4 Mg/2 Ml Vial IV 10/25/19 14:59 4 mg STAT ONE Administration Ondansetron HCl Confirm 10/25/19 15:04 Zofran 4 Mg/2 Ml Vial Administered 10/25/19 15:05 Dose 4 mg .ROUTE .STK-MED ONE Lab/Rad Data: Laboratory Result Diagrams 10/25/19 15:00 10/25/19 15:00 Laboratory Results 1210/25/19 10/25/19 Range/Units 15:00 15:00 14:58 WBC 12.9 H (4.0-10.5) K/mm3 RBC 5.90 H (4.1-5.6) M/mm3 Hgb 16.4 (12.5-18.0) gm/dl Hct 48.4 (42-50) % MCV 82.0 (78-100) fl MCH 27.8 (26-32) pg MCHC 33.9 (32-36) g/dl RDW 14.6 H (11.5-14.0) % Plt Count 222 (150-450) K/mm3 MPV 9.5 (6-9.5) fl Absolute Granulocytes 8.93 H (1.4-6.9) Segmented Neutrophils 60 (36.-66.) % Band Neutrophils 9 H (0.0-2.0) % Lymphocytes (Manual) 20 L (24-44) % Monocytes (Manual) 8 (0.0-12.0) % Basophils (Manual) 2 H (0.0-1.0) % Metamyelocytes 1 % Toxic Granulation RARE Platelet Estimate NORMAL (NORMAL) RBC Morphology ABNORMAL Sodium 144 (137-145) mmol/L Potassium 4.0 (3.5-5.1) mmol/L Chloride 106 (98-107) mmol/L Carbon Dioxide 28 (22-30) mmol/L Anion Gap 14.0 (5-15) MEQ/L BUN 18 (9-20) mg/dL Creatinine 1.20 (0.66-1.25) mg/dL Estimated GFR > 60.0 ML/MIN Glucose 94 (74-106) mg/dL Lactic Acid 1.2 (0.4-2.0) Calcium 9.7 (8.4-10.2) mg/dL Total Bilirubin 0.80 (0.2-1.3) mg/dL AST 24 (17-59) U/L ALT 27 (0-50) U/L Alkaline Phosphatase 61 (38-126) U/L Serum Total Protein 7.9 (6.3-8.2) g/dL Albumin 4.6 (3.5-5.0) g/dL Amylase 68 (30-110) U/L Lipase 229 (23-300) U/L - Progress Progress: improved, pain not gone completely, re-examined Progress Note: 10/25/19 15:45 ct abd/pelvis-acute appendicitis 10/25/19 15:50 pt states he has had cephalosporins in the past and had no problems with that antibiotic. 10/25/19 16:[address] portillo, general surgeon. i reviewed pt hx, condition, lab and xray results with him. he accepts pt for transfer to surgery suite from ED. he spoke with FRANCE Milner and surgical team called in. Discussed with : Darin Counseled pt/family regarding: lab results, diagnosis, rad results - Departure Departure Disposition: Transfer Clinical Impression: Acute appendicitis Condition: Stable Critical Care Time: No Referrals: BRAYAN KELLEY MD [Primary Care Provider] -
[2019-10-25] MEDS ORDERED: Hydromorphone 1 mg/ml Ampule IV ONE (14:58)
[2019-10-25] MEDS ORDERED: Sodium Chloride 0.9% 1000 ML 1,000 ML IV STA (14:58)
[2019-10-25] MEDS ORDERED: Zofran 4 MG/2 ML VIAL IV ONE (14:58)
[2019-10-25] MEDS ORDERED: Hydromorphone 1 mg/ml Ampule ONE ×2 (15:04→16:02)
[2019-10-25] MEDS ORDERED: Zofran 4 MG/2 ML VIAL ONE ×2 (15:04→17:04)
[2019-10-25] MEDS ORDERED: Sodium Chloride 0.9% 1000 ML 1,000 ML ONE (15:04)
[2019-10-25 15:20] LABS: Hematocrit 48.4 % (42-50); Hemoglobin 16.4 gm/dl (12.5-18.0); Mean Corpuscular Hemoglobin 27.8 pg (26-32); Mean Corpuscular Hgb Concent. 33.9 g/dl (32-36); Mean Platelet Volume 9.5 fl (6-9.5); Platelet Count 222 K/mm3 (150-450); Red Cell Distribution Width 14.6 % (11.5-14.0); White Blood Count 12.9 K/mm3 (4.0-10.5)
--- NOTE | 2019-10-25 15:29 | XRAY ---
Indication: Right flank pain. History kidney stones. Multiple contiguous axial images obtained through the abdomen and pelvis without contrast as ordered. Comparison: None Lung bases demonstrates mild bilateral dependent atelectasis and right lung calcified granulomas. No infiltrate or effusion. Heart is not enlarged. Stomach is distended with food/fluid. Noncontrasted stomach and bowel loops appear nonobstructed. Abnormal enlarged appendix up to 16 mm in diameter with periappendiceal stranding and appendicolith favoring acute appendicitis. No free fluid/air. There is mild diffuse scattered colonic fecal debris throughout and mild sigmoid diverticulosis. Remaining liver, gallbladder, pancreas, spleen, adrenal glands, kidneys, ureters, bladder, and aorta appear unremarkable for noncontrast exam. Osseous structures intact with mild L5-S1 degenerative changes. Small fatty left inguinal hernia. Impression: 1. CT findings as detailed favoring acute appendicitis. No complications. 2. Incidental mild diffuse fecal stasis without obstruction, sigmoid diverticulosis, fatty left inguinal hernia, and right lung calcified granulomas. CT DI 15.61
[2019-10-25 15:32] LABS: ALBUMIN 4.6 g/dL (3.5-5.0); ALKALINE PHOSPHATASE 61 U/L (38-126); AMYLASE 68 U/L (30-110); BLOOD UREA NITROGEN 18 mg/dL (9-20); CHLORIDE 106 mmol/L (98-107); Calcium 9.7 mg/dL (8.4-10.2); Carbon Dioxide 28 mmol/L (22-30); Glucose 94 mg/dL (74-106); LIPASE 229 U/L (23-300); SGOT/AST 24 U/L (17-59); SGPT/ALT 27 U/L (0-50); SODIUM 144 mmol/L (137-145); Total Protein 7.9 g/dL (6.3-8.2)
[2019-10-25] MEDS ORDERED: MEFOXIN 1 Gm/ D5W 50 Ml** 1 G/50 ML ML IV STA (15:49)
[2019-10-25 16:14] LABS: BAND 9 % (0.0-2.0); Basophil 2 % (0.0-1.0); Lymphocytes 20 % (24-44); Metamyelocyte 1 %; Monocyte 8 % (0.0-12.0); Neutrophils 60 % (36.-66.); Total Cells Counted 100
[2019-10-25 16:16] LABS: Platelet Estimate NORMAL (NORMAL); Toxic Granulation RARE
[2019-10-25 16:18] LABS: Absolute Neutrophil Ct (ANC) 8.93 (1.4-6.9)
[2019-10-25] MEDS ORDERED: Sensorcaine 0.25% 10 ML ONE (16:49)
[2019-10-25] MEDS ORDERED: Lactated Ringers 1,000 ML IV ONE ×2 (17:02→17:50)
[2019-10-25] MEDS ORDERED: SUBLIMAZE 100 MCG/2 ML ONE ×2 (17:03→18:20)
[2019-10-25] MEDS ORDERED: Zemuron 100 MG/10 ML ONE (17:03)
[2019-10-25] MEDS ORDERED: Quelicin Fliptop 200 MG/10 ML ONE (17:03)
[2019-10-25] MEDS ORDERED: DIPRIVAN 200 MG/20 ML IV ONE (17:03)
[2019-10-25] MEDS ORDERED: Decadron 4 MG INJ ONE (17:04)
[2019-10-25] MEDS ORDERED: TORAdol 30 mg Injection ONE (17:04)
[2019-10-25] MEDS ORDERED: BRIDION 200MG/2ML IV ONE (17:04)
[2019-10-25] MEDS ORDERED: Ephedrine Sulfate 50 MG/ML ONE (17:37)
[2019-10-25 17:53] LABS: Appearance CLEAR (CLEAR); Bilirubin NEGATIVE (NEGATIVE); Blood NEGATIVE Ery/ul (0-5); Glucose NEGATIVE (NEGATIVE); Ketones NEGATIVE (NEGATIVE); Leukocyte Esterase NEGATIVE (NEGATIVE); Mucus SLIGHT /HPF (NEGATIVE); Nitrite NEGATIVE (NEGATIVE); Protein,Urine Dip NEGATIVE (Negative); Specific Gravity 1.018 (1.005-1.025); Urobilinogen 2 mg/dL (0-1)
[2019-10-25 18:00] LABS: Bacteria NONE SEEN /HPF (NEGATIVE)
[2019-10-25] MEDS ORDERED: MORPHINE SULFATE 4 MG INJ ONE (19:08)
[2019-10-25] MEDS ORDERED: MORPHINE SULFATE 4 MG INJ IV PRN (19:32)
[2019-10-25] MEDS ORDERED: NORCO 5/325 MG PO PRN (20:06)
[2019-10-25] MEDS ORDERED: Zofran 4 MG/2 ML VIAL IV PRN (20:07)
[2019-10-25] MEDS ORDERED: D5W/0.45NS W/ 20mEq KCl 1000 ML 1,000 ML IV SCH (20:30)
[2019-10-25] MEDS: Neurontin 100 MG PO SCH (22:10)
[2019-10-26] MEDS: MEFOXIN 1 Gm/ D5W 50 Ml** 1 G/50 ML ML IV SCH ×3 (00:06→12:11)
[2019-10-26 05:48] LABS: Hematocrit 41.9 % (42-50); Hemoglobin 14.2 gm/dl (12.5-18.0); Mean Corpuscular Hemoglobin 28.1 pg (26-32); Mean Corpuscular Hgb Concent. 33.9 g/dl (32-36); Mean Platelet Volume 9.1 fl (6-9.5); Platelet Count 203 K/mm3 (150-450); Red Blood Count 5.05 M/mm3 (4.1-5.6); Red Cell Distribution Width 14.3 % (11.5-14.0); White Blood Count 11.2 K/mm3 (4.0-10.5)
[2019-10-26] MEDS: Neurontin 100 MG PO SCH (09:45)
[2019-10-26 12:33] VITALS: BP 145/86; PULSE 86; O2SAT 86
[2019-10-26] MEDS ORDERED: ENOXAPARIN SODIUM SQ SCH (13:00)
--- NOTE | 2019-10-26 13:39 | PCM.SSS ---
History of Present Illness - Chief Complaint Chief Complaint: S/P LAP APPY History of Present Illness: Mr.FISH PLUMMER is a 43 year old male pt of Dr. Holguin with chronic low back pain who was admitted yesterday for appendicitis. He had abdominal pain that started 2d ago; worsened yesterday with some N/V so he came to [facility] - was sent immediately to the ER where his WBC were 14,[address] showed enlarged appendix with stranding and appendicolith. Dr. Miller removed the appendix last night, thank you. Pt was receiving IV cefoxitin q6h here. Today the pts' WBC are 11.2 and he is tolerating po well. He is having "bloating pain" that is quite mild, worse with breathing. He will be discharged to home today on ciprofloxacin after his ROEL drain is removed. - Review of Systems Constitutional: Fatigue (for several weeks), Weight Loss (8 lb since admission) Abdominal/Gastrointestinal: Diarrhea (x 3d), Appetite Changes Musculoskeletal: Back Pain (chronic), Other (chronic leg pain) Neurological: Headache (migraine 2 wks ago (giving)) All Other Systems: Reviewed and Negative Medications & Allergies Home Medications: Home Medication List Gabapentin 100 mg PO TID 10/25/19 [History Confirmed 10/25/19] Ciprofloxacin [Cipro 500 MG] 500 mg PO BID #112 tablet 10/26/19 [Rx] Hydrocodone/APAP 5-325 Tab^^^ [Exline 5-325 Tablet^^^] 2 tab PO Q4HPRN PRN #10 tablet MDD 6 10/26/19 [Rx] Allergies/Adverse Reactions: Allergies Allergy/AdvReac Type Severity Reaction Status Date / Time Penicillins Allergy Mild Rash Verified 10/25/19 14:30 bee pollen Allergy Verified 10/25/19 14:30 bee venom protein (honey bee) Allergy Verified 10/25/19 14:30 strawberry Allergy Verified 10/25/19 14:30 watermelon Allergy Verified 10/25/19 14:30 - Past Medical History Past Medical History: Yes Neurological History: No Pertinent History ENT History: No Pertinent History Cardiac History: Hypertension Respiratory History: No Pertinent History Endocrine Medical History: No Pertinent History Musculoskelatal History: Osteoarthritis GI Medical History: No Pertinent History History: No Pertinent History Pyscho-Social History: No Pertinent History Male Reproductive Disorders: No Pertinent History Comment: past surgery on L-spine for herniated disc - Past Surgical History Past Surgical History: Yes Neuro Surgical History: No Pertinent History Cardiac History: No Pertinent History Respiratory Surgery: No Pertinent History GI Surgical History: No Pertinent History Genitourinary Surgical Hx: No Pertinent History Musculskeletal Surgical Hx: Orthopedic Surgery Male Surgical History: No Pertinent History Other Surgical History: back surgery-herniated disc repair about 10 yrs ago,. growth removed from back in february 2018 - Social History Smoking Status: Never smoker Exposure to second hand smoke: Yes Alcohol: None Drug Use: none - Physical Exam Vital Signs: Vital Signs - 24 hr Temp Pulse Resp BP Pulse Ox 10/26/19 12:31 98.1 F 86 20 145/86 86 L 10/26/19 08:00 20 10/26/19 07:28 98 F 82 20 138/70 94 L 10/26/19 04:00 98.2 F 86 19 141/77 93 L 10/26/19 00:00 97.9 F 86 18 132/71 92 L 10/25/19 22:00 98.5 F 88 16 139/68 93 L 10/25/19 21:00 98.4 F 86 14 133/74 91 L 10/25/19 20:46 98.0 F 81 16 136/72 98 10/25/19 20:00 85 16 139/68 94 L 10/25/19 19:30 97.1 F 83 16 134/72 96 10/25/19 19:00 18 177/86 97 10/25/19 17:00 131/87 98 10/25/19 16:31 98 10/25/19 16:20 85 16 131/87 97 10/25/19 15:28 78 134/72 94 L 10/25/19 14:22 99.7 F 89 162/92 98 General Appearance: no apparent distress, alert Neurologic Exam: oriented x 3, cooperative Eye Exam: eyes nml inspection Ears, Nose, Throat Exam: moist mucous membranes Neck Exam: normal inspection Respiratory Exam: normal breath sounds, lungs clear, No crackles/rales, No rhonchi, No wheezing Cardiovascular Exam: regular rate/rhythm, normal heart sounds, No murmur Gastrointestinal/Abdomen Exam: soft, normal bowel sounds, tenderness (diffuse, mild), other (dressings are clean/dry/intact. ROEL drain present with serosanguinous drainage.), No distention, No mass, No guarding, No rebound Back Exam: normal inspection, No rash Extremity Exam: normal inspection, No pedal edema Skin Exam: normal color, warm, dry, No rash Wound Assessment: Skin/Wound Assessment Wound/Incision Assessment Start: 10/25/19 18: 58 Text: Status: Active Freq: Q6H Protocol: Document 10/26/19 08:00 (Rec: 10/26/19 09:01 [id number]) Wound/Incision Assessment Anterior Abdomen Wound Assessment Shift Assessment Wound Type Incision Wound Stage Non Pressure Wound Dressing Status Dry & Intact Drainage Amount None Drainage Odor None/Absent General Appearance Clean/Dry Primary Dressing Gauze Pads Secondary Dressing silk tape Right Lower Abdomen Drain Type ROEL drain Drainage Description Serosanguineous Odor None/Absent Wound Photo Photo Taken No Results - Labs Lab/Micro Results: Lab Results-Last 24 Hours 10/25/19 10/25/19 10/25/19 Range/Units 14:58 15:00 15:00 WBC 12.9 H (4.0-10.5) K/mm3 RBC 5.90 H (4.1-5.6) M/mm3 Hgb 16.4 (12.5-18.0) gm/dl Hct 48.4 (42-50) % MCV 82.0 (78-100) fl MCH 27.8 (26-32) pg MCHC 33.9 (32-36) g/dl RDW 14.6 H (11.5-14.0) % Plt Count 222 (150-450) K/mm3 MPV 9.5 (6-9.5) fl Absolute Granulocytes 8.93 H (1.4-6.9) Segmented Neutrophils 60 (36.-66.) % Band Neutrophils 9 H (0.0-2.0) % Lymphocytes (Manual) 20 L (24-44) % Monocytes (Manual) 8 (0.0-12.0) % Basophils (Manual) 2 H (0.0-1.0) % Metamyelocytes 1 % Toxic Granulation RARE Platelet Estimate NORMAL (NORMAL) RBC Morphology ABNORMAL Sodium 144 (137-145) mmol/L Potassium 4.0 (3.5-5.1) mmol/L Chloride 106 (98-107) mmol/L Carbon Dioxide 28 (22-30) mmol/L Anion Gap 14.0 (5-15) MEQ/L BUN 18 (9-20) mg/dL Creatinine 1.20 (0.66-1.25) mg/dL Estimated GFR > 60.0 ML/MIN Glucose 94 (74-106) mg/dL Lactic Acid 1.2 (0.4-2.0) Calcium 9.7 (8.4-10.2) mg/dL Total Bilirubin 0.80 (0.2-1.3) mg/dL AST 24 (17-59) U/L ALT 27 (0-50) U/L Alkaline Phosphatase 61 (38-126) U/L Serum Total Protein 7.9 (6.3-8.2) g/dL Albumin 4.6 (3.5-5.0) g/dL Amylase 68 (30-110) U/L Lipase 229 (23-300) U/L Urine Color (YELLOW) Urine Appearance (CLEAR) Urine pH (5-6) Ur Specific Spelter (1.005-1.025) Urine Protein (Negative) Urine Ketones (NEGATIVE) Urine Blood (0-5) Bentley/ul Urine Nitrite (NEGATIVE) Urine Bilirubin (NEGATIVE) Urine Urobilinogen (0-1) mg/dL Ur Leukocyte Esterase (NEGATIVE) Urine WBC (Auto) (0-5) /HPF Urine RBC (Auto) (0-2) /HPF U Epithel Cells (Auto) (FEW) /HPF Urine Bacteria (Auto) (NEGATIVE) /HPF Urine Mucus (Auto) (NEGATIVE) /HPF Urine Culture Reflexed (NO) Urine Glucose (NEGATIVE) mg/dL 10/25/19 10/26/19 Range/Units 17:03 05:40 WBC 11.2 H (4.0-10.5) K/mm3 RBC 5.05 (4.1-5.6) M/mm3 Hgb 14.2 (12.5-18.0) gm/dl Hct 41.9 L (42-50) % MCV 83.0 (78-100) fl MCH 28.1 (26-32) pg MCHC 33.9 (32-36) g/dl RDW 14.3 H (11.5-14.0) % Plt Count 203 (150-450) K/mm3 MPV 9.1 (6-9.5) fl Absolute Granulocytes (1.4-6.9) Segmented Neutrophils (36.-66.) % Band Neutrophils (0.0-2.0) % Lymphocytes (Manual) (24-44) % Monocytes (Manual) (0.0-12.0) % Basophils (Manual) (0.0-1.0) % Metamyelocytes % Toxic Granulation Platelet Estimate (NORMAL) RBC Morphology Sodium (137-145) mmol/L Potassium (3.5-5.1) mmol/L Chloride (98-107) mmol/L Carbon Dioxide (22-30) mmol/L Anion Gap (5-15) MEQ/L BUN (9-20) mg/dL Creatinine (0.66-1.25) mg/dL Estimated GFR ML/MIN Glucose (74-106) mg/dL Lactic Acid (0.4-2.0) Calcium (8.4-10.2) mg/dL Total Bilirubin (0.2-1.3) mg/dL AST (17-59) U/L ALT (0-50) U/L Alkaline Phosphatase (38-126) U/L Serum Total Protein (6.3-8.2) g/dL Albumin (3.5-5.0) g/dL Amylase (30-110) U/L Lipase (23-300) U/L Urine Color YELLOW (YELLOW) Urine Appearance CLEAR (CLEAR) Urine pH 6.0 (5-6) Ur Specific Spelter 1.018 (1.005-1.025) Urine Protein NEGATIVE (Negative) Urine Ketones NEGATIVE (NEGATIVE) Urine Blood NEGATIVE (0-5) Bentley/ul Urine Nitrite NEGATIVE (NEGATIVE) Urine Bilirubin NEGATIVE (NEGATIVE) Urine Urobilinogen 2 (0-1) mg/dL Ur Leukocyte Esterase NEGATIVE (NEGATIVE) Urine WBC (Auto) NONE (0-5) /HPF Urine RBC (Auto) NONE (0-2) /HPF U Epithel Cells (Auto) NONE (FEW) /HPF Urine Bacteria (Auto) NONE SEEN (NEGATIVE) /HPF Urine Mucus (Auto) SLIGHT (NEGATIVE) /HPF Urine Culture Reflexed NO (NO) Urine Glucose NEGATIVE (NEGATIVE) mg/dL - Radiology Impressions Radiology Exams & Impressions: Radiology Procedures Category Date Time Status ABDOMEN AND PELVIS W/0 CONTRAS [CT] Stat Exams 10/25/19 15:00 Completed Assessment/Plan (1) Acute appendicitis Current Visit: Yes Status: Acute Qualifiers: Acute appendicitis type: unspecified acute appendicitis type Qualified Code (s): K35.80 - Unspecified acute appendicitis Assessment & Plan: Removed by Dr. Simeon, thank you. Home on cipro. Code(s): K35.80 - UNSPECIFIED ACUTE APPENDICITIS (2) Leukocytosis Current Visit: No Status: Resolved Qualifiers: Leukocytosis type: unspecified Qualified Code(s): D72.829 - Elevated white blood cell count, unspecified Code(s): D72.829 - ELEVATED WHITE BLOOD CELL COUNT, UNSPECIFIED Hospital Summary - Hospital Course Hospital Course: Mr.FISH PLUMMER is a 43 year old male pt of Dr. Holguin with chronic low back pain who was admitted yesterday for appendicitis. He had abdominal pain that started 2d ago; worsened yesterday with some N/V so he came [facility] - was sent immediately to the ER where his WBC were 14,[address] showed enlarged appendix with stranding and appendicolith. Dr. Miller removed the appendix last night, thank you. Pt was receiving IV cefoxitin q6h here. Today the pts' WBC are 11.2 and he is tolerating po well. He is having "bloating pain" that is quite mild, worse with breathing. He will be discharged to home today on ciprofloxacin after his ROEL drain is removed. - Vitals & Intake/Output Vital Signs: Vital Signs Temperature 98.1 F 10/26/19 12:31 Pulse Rate 86 10/26/19 12:31 Respiratory Rate 20 10/26/19 12:31 Blood Pressure 145/86 10/26/19 12:31 O2 Sat by Pulse Oximetry 86 L 10/26/19 12:31 Intake & Output: Intake & Output 10/24/19 10/25/19 10/26/19 10/27/19 11:59 11:59 11:59 11:59 Intake Total 2544 360 Output Total 655 355 Balance 1889 5 Weight 107.3 kg - Lab Result Diagrams: 10/26/19 05:40 10/25/19 15:00 Lab Results-Last 24 Hrs: Lab Results-Last 24 Hours 10/25/19 10/25/19 10/25/19 Range/Units 14:58 15:00 15:00 WBC 12.9 H (4.0-10.5) K/mm3 RBC 5.90 H (4.1-5.6) M/mm3 Hgb 16.4 (12.5-18.0) gm/dl Hct 48.4 (42-50) % MCV 82.0 (78-100) fl MCH 27.8 (26-32) pg MCHC 33.9 (32-36) g/dl RDW 14.6 H (11.5-14.0) % Plt Count 222 (150-450) K/mm3 MPV 9.5 (6-9.5) fl Absolute Granulocytes 8.93 H (1.4-6.9) Segmented Neutrophils 60 (36.-66.) % Band Neutrophils 9 H (0.0-2.0) % Lymphocytes (Manual) 20 L (24-44) % Monocytes (Manual) 8 (0.0-12.0) % Basophils (Manual) 2 H (0.0-1.0) % Metamyelocytes 1 % Toxic Granulation RARE Platelet Estimate NORMAL (NORMAL) RBC Morphology ABNORMAL Sodium 144 (137-145) mmol/L Potassium 4.0 (3.5-5.1) mmol/L Chloride 106 (98-107) mmol/L Carbon Dioxide 28 (22-30) mmol/L Anion Gap 14.0 (5-15) MEQ/L BUN 18 (9-20) mg/dL Creatinine 1.20 (0.66-1.25) mg/dL Estimated GFR > 60.0 ML/MIN Glucose 94 (74-106) mg/dL Lactic Acid 1.2 (0.4-2.0) Calcium 9.7 (8.4-10.2) mg/dL Total Bilirubin 0.80 (0.2-1.3) mg/dL AST 24 (17-59) U/L ALT 27 (0-50) U/L Alkaline Phosphatase 61 (38-126) U/L Serum Total Protein 7.9 (6.3-8.2) g/dL Albumin 4.6 (3.5-5.0) g/dL Amylase 68 (30-110) U/L Lipase 229 (23-300) U/L Urine Color (YELLOW) Urine Appearance (CLEAR) Urine pH (5-6) Ur Specific Spelter (1.005-1.025) Urine Protein (Negative) Urine Ketones (NEGATIVE) Urine Blood (0-5) Bentley/ul Urine Nitrite (NEGATIVE) Urine Bilirubin (NEGATIVE) Urine Urobilinogen (0-1) mg/dL Ur Leukocyte Esterase (NEGATIVE) Urine WBC (Auto) (0-5) /HPF Urine RBC (Auto) (0-2) /HPF U Epithel Cells (Auto) (FEW) /HPF Urine Bacteria (Auto) (NEGATIVE) /HPF Urine Mucus (Auto) (NEGATIVE) /HPF Urine Culture Reflexed (NO) Urine Glucose (NEGATIVE) mg/dL 10/25/19 10/26/19 Range/Units 17:03 05:40 WBC 11.2 H (4.0-10.5) K/mm3 RBC 5.05 (4.1-5.6) M/mm3 Hgb 14.2 (12.5-18.0) gm/dl Hct 41.9 L (42-50) % MCV 83.0 (78-100) fl MCH 28.1 (26-32) pg MCHC 33.9 (32-36) g/dl RDW 14.3 H (11.5-14.0) % Plt Count 203 (150-450) K/mm3 MPV 9.1 (6-9.5) fl Absolute Granulocytes (1.4-6.9) Segmented Neutrophils (36.-66.) % Band Neutrophils (0.0-2.0) % Lymphocytes (Manual) (24-44) % Monocytes (Manual) (0.0-12.0) % Basophils (Manual) (0.0-1.0) % Metamyelocytes % Toxic Granulation Platelet Estimate (NORMAL) RBC Morphology Sodium (137-145) mmol/L Potassium (3.5-5.1) mmol/L Chloride (98-107) mmol/L Carbon Dioxide (22-30) mmol/L Anion Gap (5-15) MEQ/L BUN (9-20) mg/dL Creatinine (0.66-1.25) mg/dL Estimated GFR ML/MIN Glucose (74-106) mg/dL Lactic Acid (0.4-2.0) Calcium (8.4-10.2) mg/dL Total Bilirubin (0.2-1.3) mg/dL AST (17-59) U/L ALT (0-50) U/L Alkaline Phosphatase (38-126) U/L Serum Total Protein (6.3-8.2) g/dL Albumin (3.5-5.0) g/dL Amylase (30-110) U/L Lipase (23-300) U/L Urine Color YELLOW (YELLOW) Urine Appearance CLEAR (CLEAR) Urine pH 6.0 (5-6) Ur Specific Spelter 1.018 (1.005-1.025) Urine Protein NEGATIVE (Negative) Urine Ketones NEGATIVE (NEGATIVE) Urine Blood NEGATIVE (0-5) Bentley/ul Urine Nitrite NEGATIVE (NEGATIVE) Urine Bilirubin NEGATIVE (NEGATIVE) Urine Urobilinogen 2 (0-1) mg/dL Ur Leukocyte Esterase NEGATIVE (NEGATIVE) Urine WBC (Auto) NONE (0-5) /HPF Urine RBC (Auto) NONE (0-2) /HPF U Epithel Cells (Auto) NONE (FEW) /HPF Urine Bacteria (Auto) NONE SEEN (NEGATIVE) /HPF Urine Mucus (Auto) SLIGHT (NEGATIVE) /HPF Urine Culture Reflexed NO (NO) Urine Glucose NEGATIVE (NEGATIVE) mg/dL - Radiology Exams Ordered Rad Exams-Entire Visit: Radiology Procedures Category Date Time Status ABDOMEN AND PELVIS W/0 CONTRAS [CT] Stat Exams 10/25/19 15:00 Completed - Discharge Disposition: Home, Self-Care Condition: Stable Prescriptions: New Hydrocodone/APAP 5-325 Tab^^^ [Exline 5-325 Tablet^^^] 2 tab PO Q4HPRN PRN # 10 tablet MDD 6 PRN Reason: Pain Ciprofloxacin [Cipro 500 MG] 500 mg PO BID #112 tablet Continue Gabapentin 100 mg PO TID Instructions: Cholecystectomy, Laparoscopic Surgery Follow up with: BRAYAN KELLEY MD [Primary Care Provider] - 1 Week RE SIMEON [COURTESY STAFF] - 1 Week Forms: Discharge Instructions
--- NOTE | 2019-10-28 10:26 | CONS ---
CONSULT DATE: 10/25/2019 HISTORY: This gentleman had right lower quadrant pain that started yesterday associated with nausea. He did have some loose stools. No vomiting. He failed to improve. He came in the emergency department and they worked him up. He had a white count of 12.9. CT scan showed some periappendiceal inflammatory changes and a little bit dilated appendix. It was felt he had acute appendicitis per the radiologist. He also had some fecal stasis in the colon. PAST MEDICAL HISTORY: He denies any chronic illnesses. He does have some chronic back problems. PAST SURGICAL HISTORY: Back surgery years ago. He denied any prior abdominal surgery. MEDICATIONS: He is on Neurontin for back problems. He is followed by and [place], he said. ALLERGIES: PENICILLIN. FAMILY HISTORY: Heart disease. SOCIAL HISTORY: Occasional alcohol use. He denied smoking. LAB DATA AND TESTS: White count 12.9. REVIEW OF SYSTEMS: Fourteen systems reviewed. No chest pain or palpitations. Other systems negative or noncontributory as above and per preadmission questionnaire. PHYSICAL EXAMINATION: GENERAL: Uncomfortable otherwise no acute distress. HEENT: Sclera nonicteric. NECK: No JVD. CHEST: Equal excursion, nonlabored breathing. CVS: Regular rate, rhythm and pulse. ABDOMEN: Soft. He has got some tenderness in right lower quadrant. EXTREMITIES: No edema. No cyanosis. NEURO: Alert, moving extremities grossly symmetrically. No gross motor deficits. IMPRESSION: Acute right lower quadrant pain, leukocytosis. History, physical exam, CT findings suspicious for acute appendicitis. I feel he will benefit from diagnostic laparoscopy, laparoscopic appendectomy possible open. Risks and benefits explained in detail but not limited to bleeding or infection, risk of trocar injury or hernia, small risk bowel, bladder or blood vessel injury, small risk of subsequent intra-abdominal abscess or fistula formation possibly requiring percutaneous or open drain, general risk of anesthesia, deep venous thrombosis, pulmonary embolism, pneumonia, perioperative risk of aches, pains, bloating, constipation, ileus or obstruction. He also understands general risk of anesthesia, deep venous thrombosis, pulmonary embolism, pneumonia but not limited to. He also understands possibility of finding a normal appendix likely remove incidentally and look for other etiology that might need taken care of surgically. He understands and agrees to the planned procedure, will proceed with diagnostic laparoscopy, laparoscopic appendectomy, possible open when OR time available.
--- NOTE | 2019-10-28 10:41 | OP ---
SURGERY DATE/TIME: 10/25/2019 1710 PREOPERATIVE DIAGNOSIS: Acute right lower quadrant pain suspicious for acute appendicitis. POSTOPERATIVE DIAGNOSIS: Acute suppurative appendicitis with localized peritonitis right abdomen. PROCEDURE: Laparoscopic appendectomy. SURGEON: Dr. Tiago Simeon. ANESTHESIA: General. INDICATIONS: As noted above. Risks and benefits explained in detail but not limited to, consent obtained. DESCRIPTION OF PROCEDURE AND FINDINGS: The patient was taken to the operating room. General anesthesia was induced. Abdomen prepped and draped in usual sterile fashion. After official time out and no disagreement with planned procedure, a transverse incision made at supraumbilical area. Fascia grasped and pulled upwards. Veress needle inserted and tested with saline. Pneumoperitoneum accomplished insufflating from opening pressure of 0 to 15. A 5 mm bladeless port and camera were inserted without difficulty followed by a lower midline 5 mm port and right mid abdomen 12 mm port. There was no evidence of any intra-abdominal injury secondary to port or Veress needle placement. He had acute suppurative appendicitis with some purulence. There is no evidence of any large perforation. There was some localized peritonitis in the area. With his weight, he had quite a bit of adipose tissue around it. It took some time but the appendix was carefully cleared at the base of the cecum. EndoGIA stapler fired across the base of the appendix to the cecum. Sequential reloads fired across the mesoappendix. He did have some pulsatile ooze towards the distal tip of the staple line. Initially tried placing a couple clips there but the clip misfired once and it became necessary to place another staple there for better hemostasis at this point but because of all the reaction it was felt he would benefit from temporary ROEL drain placement along the right gutter to the inferior port wound. Copious amount of irrigation irrigated until clear. The appendix had been placed in the bag, pulled free and passed off. Port is replaced. Copious amount of irrigation accomplished lateral to the liver. Staple line is intact. No signs of any active bleeding or leakage at this point on the cecum or the mesoappendix. ROEL drain is in good position out through the inferior 5 mm port site secured with PDS suture and placed to bulb suction. At this point fascial defect 12 mm site closed with puncture closure device with #1 Vicryl. Pneumoperitoneum decompressed. The wound is irrigated out. Skin incision closed with 4-0 Vicryl. Steri-Strips and sterile dressing applied. 0.25% Marcaine local injected along the skin incision fascial defects at the beginning of the procedure. The patient tolerated the procedure well. There were no immediate complications. Findings discussed with the family out in the waiting area.
== END 2019-10-26 14:11 | disposition home or self-care (01) ==
LOC: ED 14:19 → MED SURG 18:40
PROVIDERS: ADMIT Family Medicine; ATTEND Family Medicine
DX: K35.33 Acute appendicitis with perforation, localized peritonitis, and gangrene, with abscess (principal); D72.829 Elevated white blood cell count, unspecified; M54.5 Low back pain; R53.83 Other fatigue; R63.4 Abnormal weight loss; R51 Headache; R19.7 Diarrhea, unspecified
CPT/HCPCS: 36000; 36415; 44970; 74176; 80053; 81001; 82150; 83605; 83690; 85025; 85027; 96365; 96374; 96375; 99285; G0378; 99140; J0330; J0694; J1100; J1170; J1650; J1885; J2270; J2405; J2704; J3010; A9270-GY

== ENCOUNTER 2024-09-16 08:58 | Emergency (ER) | payer BC ==
--- NOTE | 2024-09-16 09:17 | ERPHSYRPT ---
- History of Present Illness Time Seen by Provider: 09/16/24 09:17 Historian: patient Exam Limitations: no limitations Physician History: This is a 48-year-old white male patient of Dr. Kelley who presents by private vehicle to the emergency department. Patient has been having abdominal pain for the last 3 months intermittently. He became concerned because in the last week he would vomit after eating with the associated abdominal cramping. Patient has been noncompliant with his medication. He arrives with hypertension with a systolic blood pressure of over 200. Patient has not had any abdominal surgeries in the past. Again, his abdominal discomfort is described as diffuse intermittent abdominal cramping. He has not had fevers. He denies chest pain and he denies shortness of breath. Patient has a history of hypertension and osteoarthritis. Timing/Duration: other (Intermittent generalized abdominal pain for the last 3 months. Is described as diffuse intermittent abdominal cramping.) Activities at Onset: other (Postprandial intermittently) Quality: cramping Abdominal Pain Onset Location: generalized abdomen Pain Radiation: no radiation Severity of Pain-Max: moderate Severity of Pain-Current: moderate Modifying Factors: Improves With: vomiting Associated Symptoms: loss of appetite, nausea, vomiting, No chest pain, No sh ortness of breath Previous symptoms: same symptoms as today, no recent treatment Allergies/Adverse Reactions: Penicillins Allergy (Mild, Verified 09/16/24 09:09) Rash bee pollen Allergy (Verified 09/16/24 09:09) bee venom protein (honey bee) Allergy (Verified 09/16/24 09:09) strawberry Allergy (Verified 09/16/24 09:09) watermelon Allergy (Verified 09/16/24 09:09) Home Medications: Omeprazole Magnesium [Prilosec Otc] 20 mg PO DAILY 09/16/24 [History] Hx Tetanus, Diphtheria Vaccination/Date Given: Yes Hx Influenza Vaccination/Date Given: No Hx Pneumococcal Vaccination/Date Given: No Travel Risk - International Travel Have you traveled outside of the country in past 3 weeks: No - Emerging Infectious Disease Are you exhibiting symptoms associated with any current EIDs: No - Review of Systems Constitutional: No Symptoms Eyes: No Symptoms Ears, Nose, & Throat: No Symptoms Respiratory: No Symptoms Cardiac: No Symptoms Abdominal/Gastrointestinal: Abdominal Pain, Nausea, Vomiting, Appetite Changes Genitourinary Symptoms: No Symptoms Musculoskeletal: No Symptoms Skin: No Symptoms Neurological: No Symptoms Psychological: No Symptoms Endocrine: No Symptoms Hematologic/Lymphatic: No Symptoms Immunological/Allergic: No Symptoms All Other Systems: Reviewed and Negative - Past Medical History Pertinent Past Medical History: Yes Neurological History: No Pertinent History ENT History: No Pertinent History Cardiac History: Hypertension Respiratory History: No Pertinent History Endocrine Medical History: No Pertinent History Musculoskeletal History: Osteoarthritis GI Medical History: No Pertinent History History: No Pertinent History Psycho-Social History: No Pertinent History Male Reproductive Disorders: No Pertinent History Other Medical History: past surgery on L-spine for herniated disc - Past Surgical History Past Surgical History: Yes Neuro Surgical History: No Pertinent History Cardiac: No Pertinent History Respiratory: No Pertinent History Gastrointestinal: Appendectomy Genitourinary: No Pertinent History Musculoskeletal: Orthopedic Surgery Male Surgical History: No Pertinent History Other Surgical History: back surgery-herniated disc repair about 10 yrs ago,. growth removed from back in february 2018 - Social History Smoking Status: Never smoker Exposure to second hand smoke: Yes Drug Use: none Patient Lives Alone: No - Nursing Vital Signs Nursing Vital Signs: Initial Vital Signs Respiratory Rate 18 09/16/24 09:19 Blood Pressure 173/96 09/16/24 09:19 O2 Sat by Pulse Oximetry 96 09/16/24 09:19 Pain Scale Pain Intensity 3 - Physical Exam General Appearance: mild distress, alert, anxiety, obese Eye Exam: PERRL/EOMI, eyes nml inspection Ears, Nose, Throat Exam: normal ENT inspection, moist mucous membranes Neck Exam: normal inspection, non-tender, supple, full range of motion Respiratory Exam: normal breath sounds, lungs clear, No chest tenderness, No respiratory distress Cardiovascular Exam: tachycardia Gastrointestinal/Abdomen Exam: soft, normal bowel sounds, tenderness (Mild diffuse with palpation), guarding (Mild diffuse with palpation), No rebound Rectal Exam: not done Back Exam: normal inspection, normal range of motion, No CVA tenderness, No vertebral tenderness Extremity Exam: normal inspection, normal range of motion, pelvis stable Neurologic Exam: alert, oriented x 3, cooperative, 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-XII nml as tested, normal mood/affect, nml cerebellar function, nml station & gait, sensation nml Skin Exam: normal color, warm, dry Lymphatic Exam: No adenopathy SpO2 Interpretation: normal O2 Delivery: Room Air - Course Nursing assessment & vital signs reviewed: Yes Ordered Tests: Active Orders 24 hr Category Date Time Status IV Insertion STAT Care 09/16/24 09:23 Active ABDOMEN AND PELVIS W/0 CONTRAS [CT] Stat Exams 09/16/24 09:23 Completed AMYLASE Stat Lab 09/16/24 10:00 Completed CBC W DIFF Stat Lab 09/16/24 10:00 Completed CMP Stat Lab 09/16/24 10:00 Completed Lactic Acid Stat Lab 09/16/24 09:59 Completed TROPONIN Q4H Lab 09/16/24 10:00 Completed TROPONIN Q4H Lab 09/16/24 13:30 Ordered TROPONIN Q4H Lab 09/16/24 17:30 Ordered UA W/RFX UR CULTURE Stat Lab 09/16/24 Completed Medication Summary Discontinued Medications Generic Name Dose Route Start Last Admin Trade Name Freq PRN Reason Stop Dose Admin Enalaprilat 1.25 mg 09/16/24 10:38 09/16/24 11:07 Enalaprilat 2.5 Mg Injection IV 09/16/24 10:39 1.25 mg STAT ONE Administration Enalaprilat Confirm 09/16/24 11:07 Enalaprilat 2.5 Mg Injection Administered 09/16/24 11:08 Dose 2.5 mg IV .STK-MED ONE Sodium Chloride 500 mls @ 500 mls/hr 09/16/24 09:24 09/16/24 11:08 Sodium Chloride 0.9% 500 Ml IV 09/16/24 10:23 Infused .Q1H ONE Infusion Sodium Chloride Confirm 09/16/24 09:55 Sodium Chloride 0.9% 500 Ml Administered 09/16/24 09:56 Dose 500 mls @ ud IV .STK-MED ONE Ondansetron HCl 4 mg 09/16/24 09:23 09/16/24 10:02 Ondansetron Hcl 4 Mg/2 Ml Vial IV 09/16/24 09:24 4 mg STAT ONE Administration Ondansetron HCl Confirm 09/16/24 09:55 Ondansetron Hcl 4 Mg/2 Ml Vial Administered 09/16/24 09:56 Dose 4 mg .ROUTE .STK-MED ONE Pantoprazole Sodium 40 mg 09/16/24 09:23 09/16/24 10:02 Pantoprazole 40 Mg Vial IV 09/16/24 09:24 40 mg STAT ONE Administration Pantoprazole Sodium Confirm 09/16/24 09:55 Pantoprazole 40 Mg Vial Administered 09/16/24 09:56 Dose 40 mg IV .[facility] ONE Lab/Rad Data: Laboratory Result Diagrams 09/16/24 10:00 09/16/24 10:00 Laboratory Results 09/16/24 09/16/24 09/16/24 Range/Units Unknown 10:00 10:00 WBC (4.23-9.07) x10^3/uL RBC (4.63-6.08) x10^6/uL Hgb (13.7-17.5) g/dL Hct (40.1-51.0) % MCV (79.0-92.2) fL MCH (25.7-32.2) pg MCHC (32.3-36.5) g/dL RDW (11.6-14.4) % Plt Count (163-337) x10^3/uL MPV (9.4-12.4) fL Gran % (34.0-67.9) % Immature Gran % (Auto) (0.001-0.429) % Nucleat RBC Rel Count (0.00-0.2) % Eos # (Auto) (0.04-0.54) x10^3/uL Immature Gran # (Auto) (0.001-0.031) x10^3u/L Absolute Lymphs (auto) (1.32-3.57) x10^3/uL Absolute Monos (auto) (0.30-0.82) x10^3/uL Absolute Nucleated RBC (0.00-0.012) x10^3u/L Lymphocytes % (21.8-53.1) % Monocytes % (5.3-12.2) % Eosinophils % (0.8-7.0) % Basophils % (0.2-1.2) % Absolute Granulocytes (1.78-5.38) x10^3/uL Basophils # (0.01-0.08) x10^3/uL Sodium 141 (135-145) mmol/L Potassium 4.1 (3.5-5.1) mmol/L Chloride 107 (98-107) mmol/L Carbon Dioxide 23 (22-30) mmol/L Anion Gap 14.8 (5-15) MEQ/L BUN 17 (9-20) mg/dL Creatinine 1.18 (0.66-1.25) mg/dL Estimated GFR 75.6 ML/MIN Glucose 104 (74-106) mg/dL Lactic Acid (0.4-2.0) Calcium 9.3 (8.4-10.2) mg/dL Total Bilirubin 0.70 (0.2-1.3) mg/dL AST 28 (17-59) U/L ALT 33 (0-50) U/L Alkaline Phosphatase 74 (38-126) U/L Troponin I < 0.012 (0.000-0.033) ng/mL Serum Total Protein 7.0 (6.3-8.2) g/dL Albumin 4.2 (3.5-5.0) g/dL Amylase 61 (30-110) U/L Urine Color Yellow (Yellow) Urine Appearance Clear (Clear) Urine pH 6.0 (4.6-8.0) Ur Specific [place] 1.025 (1.005-1.030) Urine Protein Trace A (Negative) Urine Glucose (UA) Negative (Negative) mg/dL Urine Ketones Trace A (Negative) Urine Blood Negative (Negative) Urine Nitrite Negative (Negative) Urine Bilirubin Negative (Negative) Urine Urobilinogen 1.0 A (0.2) mg/dL Ur Leukocyte Esterase Negative (Negative) U Hyaline Cast (Auto) NONE SEEN (0-2) /LPF Urine Microscopic RBC 0-2 (0-5) /HPF Urine Microscopic WBC 0-2 (0-5) /HPF Ur Epithelial Cells None Seen (None Seen) /HPF Urine Bacteria None Seen (None Seen) /HPF Urine Culture Reflexed NO (NO) 09/16/24 09/16/24 Range/Units 10:00 09:59 WBC 9.0 (4.23-9.07) x10^3/uL RBC 5.91 (4.63-6.08) x10^6/uL Hgb 16.1 (13.7-17.5) g/dL Hct 47.5 (40.1-51.0) % MCV 80.4 (79.0-92.2) fL MCH 27.2 (25.7-32.2) pg MCHC 33.9 (32.3-36.5) g/dL RDW 13.8 (11.6-14.4) % Plt Count 221 (163-337) x10^3/uL MPV 9.1 L (9.4-12.4) fL Gran % 65.7 (34.0-67.9) % Immature Gran % (Auto) 1.7 H (0.001-0.429) % Nucleat RBC Rel Count 0.0 (0.00-0.2) % Eos # (Auto) 0.07 (0.04-0.54) x10^3/uL Immature Gran # (Auto) 0.15 H (0.001-0.031) x10^3u/L Absolute Lymphs (auto) 2.21 (1.32-3.57) x10^3/uL Absolute Monos (auto) 0.60 (0.30-0.82) x10^3/uL Absolute Nucleated RBC 0.00 (0.00-0.012) x10^3u/L Lymphocytes % 24.5 (21.8-53.1) % Monocytes % 6.7 (5.3-12.2) % Eosinophils % 0.8 (0.8-7.0) % Basophils % 0.6 (0.2-1.2) % Absolute Granulocytes 5.94 H (1.78-5.38) x10^3/uL Basophils # 0.05 (0.01-0.08) x10^3/uL Sodium (135-145) mmol/L Potassium (3.5-5.1) mmol/L Chloride (98-107) mmol/L Carbon Dioxide (22-30) mmol/L Anion Gap (5-15) MEQ/L BUN (9-20) mg/dL Creatinine (0.66-1.25) mg/dL Estimated GFR ML/MIN Glucose (74-106) mg/dL Lactic Acid 1.5 (0.4-2.0) Calcium (8.4-10.2) mg/dL Total Bilirubin (0.2-1.3) mg/dL AST (17-59) U/L ALT (0-50) U/L Alkaline Phosphatase (38-126) U/L Troponin I (0.000-0.033) ng/mL Serum Total Protein (6.3-8.2) g/dL Albumin (3.5-5.0) g/dL Amylase (30-110) U/L Urine Color (Yellow) Urine Appearance (Clear) Urine pH (4.6-8.0) Ur Specific [place] (1.005-1.030) Urine Protein (Negative) Urine Glucose (UA) (Negative) mg/dL Urine Ketones (Negative) Urine Blood (Negative) Urine Nitrite (Negative) Urine Bilirubin (Negative) Urine Urobilinogen (0.2) mg/dL Ur Leukocyte Esterase (Negative) U Hyaline Cast (Auto) (0-2) /LPF Urine Microscopic RBC (0-5) /HPF Urine Microscopic WBC (0-5) /HPF Ur Epithelial Cells (None Seen) /HPF Urine Bacteria (None Seen) /HPF Urine Culture Reflexed (NO) - Progress Progress: improved, pain not gone completely, re-examined Progress Note: 09/16/24 09:50 My medical decision making and the assignment of moderate complexity to this patient's medical issue today is based on review of the patient's past medical history, review of the patient's medication list, review patient drug allergy list, history present illness and physical findings on examination. The workup in this patient includes placement of intravenous line, infusion of normal saline solution, infusion of Zofran and and Protonix intravenously, CBC, CMP, amylase, lipase, urinalysis and CT scan of the abdomen pelvis without contrast. Differential diagnosis includes but is not limited to pancreatitis, colitis, diverticulitis, bowel obstruction, urinary tract infection 09/16/24 11:30 Interpreted the patient's laboratory data results. Based on the laboratory data results the patient does not have any acute or emergent medical issue. The CT scan of the abdomen and pelvis without contrast was interpreted by the radiologist and I reviewed the impression. The impression states new, tiny gallstones. Sigmoid diverticulosis without diverticulitis. L5-S1 degenerative disc disease. Fatty left inguinal hernia Counseled pt/family regarding: lab results, diagnosis, need for follow-up, rad results Medical Desision Making - Independent Historian Additional History obtained from: Relative/friend - Diagnostic Testing Diagnostic test were ordered, analyzed, and reviewed by me: Yes Radiological Interpretation: Reviewed by me, Teleradiologist Report - Risk of complications Low Risk: Low risk of morbidity from additional dx testing or treatment - Departure Departure Disposition: Home Clinical Impression: Cholelithiasis, Left inguinal hernia, Degenerative joint disease (DJD) of lumbar spine Condition: Stable Critical Care Time: No Referrals: BRAYAN KELLEY MD [Primary Care Provider] - Follow up/PCP as directed Additional Instructions: Drink plenty of fluids. Take your medications as prescribed. Avoid fatty greasy spicy foods. Keep your appointment with Dr. Kelley that is scheduled on September 19, 2024 at 10 AM.
[2024-09-16 09:22] VITALS: PULSE 105; RESP 18; TEMP 97.2
[2024-09-16] MEDS ORDERED: Zofran 4 MG/2 ML VIAL ONE (09:55)
[2024-09-16] MEDS ORDERED: PROTONIX 40 MG IV IV ONE (09:55)
[2024-09-16] MEDS ORDERED: Sodium Chloride 0.9% 500 ML 500 ML IV ONE (09:55)
[2024-09-16] MEDS: PROTONIX 40 MG IV IV ONE (10:02)
[2024-09-16] MEDS: Sodium Chloride 0.9% 500 ML 500 ML IV ONE (10:02)
[2024-09-16] MEDS: Zofran 4 MG/2 ML VIAL IV ONE (10:02)
[2024-09-16 10:04] LABS: Absolute Neutrophil Ct (ANC) 5.94 x10^3/uL (1.78-5.38); BASOPHIL % 0.6 % (0.2-1.2); Basophil (Absolute #) 0.05 x10^3/uL (0.01-0.08); Eosinophil % 0.8 % (0.8-7.0); Eosinophil (Absolute #) 0.07 x10^3/uL (0.04-0.54); Hematocrit 47.5 % (40.1-51.0); Hemoglobin 16.1 g/dL (13.7-17.5); IMMATURE GRAN # 0.15 x10^3u/L (0.001-0.031); IMMATURE GRAN % 1.7 % (0.001-0.429); Lymphocyte (Absolute #) 2.21 x10^3/uL (1.32-3.57); Lymphocytes % 24.5 % (21.8-53.1); Mean Cell Volume 80.4 fL (79.0-92.2); Mean Corpuscular Hemoglobin 27.2 pg (25.7-32.2); Mean Corpuscular Hgb Concent. 33.9 g/dL (32.3-36.5); Mean Platelet Volume 9.1 fL (9.4-12.4); Monocytes % 6.7 % (5.3-12.2); Neutrophil % 65.7 % (34.0-67.9); Platelet Count 221 x10^3/uL (163-337); Red Blood Count 5.91 x10^6/uL (4.63-6.08); Red Cell Distribution Width 13.8 % (11.6-14.4)
[2024-09-16 10:22] LABS: Appearance Clear (Clear); Bacteria None Seen /HPF (None Seen); Bilirubin Negative (Negative); Blood Negative (Negative); Epithelial Cells None Seen /HPF (None Seen); Glucose, Urine Negative (Negative); Hyaline Casts NONE SEEN /LPF (0-2); Ketones Trace (Negative); Leukocyte Esterase Negative (Negative); Nitrite Negative (Negative); Protein,Urine Dip Trace (Negative); RBC 0-2 /HPF (0-5); Specific Gravity 1.025 (1.005-1.030); WBC 0-2 /HPF (0-5)
[2024-09-16 10:24] LABS: ALBUMIN 4.2 g/dL (3.5-5.0); ANION GAP 14.8 MEQ/L (5-15); BILIRUBIN,TOTAL 0.7 mg/dL (0.2-1.3); Calcium 9.3 mg/dL (8.4-10.2); Creatinine 1 1.18 mg/dL (0.66-1.25); EST GLOMERULAR FILTRATION RATE 75.6 ML/MIN; Potassium 4.1 mmol/L (3.5-5.1)
--- NOTE | 2024-09-16 10:48 | XRAY ---
Indication: Abdomen pain and vomiting. Multiple contiguous axial images obtained through the abdomen and pelvis without contrast. Comparison: October 25, 2019 Lung bases again demonstrates a few right lung calcified granulomas. No infiltrate or effusion. Heart not enlarged. Noncontrasted stomach and bowel loops appear nonobstructed. Interval appendectomy. Again minimal sigmoid diverticulosis without diverticulitis. Normally distended gallbladder with two new 3 mm gallstones, No free fluid/air. Remaining liver, gallbladder, pancreas, spleen, adrenal glands, kidneys, ureters, bladder, and aorta are unremarkable for noncontrast exam. Osseous structures intact again with minimal L5-S1 degenerative disc disease. Stable small fatty left inguinal hernia. Impression: 1. New tiny gallstones. 2. Again chronic findings including sigmoid diverticulosis, L5-S1 degenerative disc disease, fatty left inguinal hernia, and right lung calcified granulomas. 3. Remaining CT abdomen/pelvis without contrast exam is negative.
[2024-09-16] MEDS ORDERED: ENALAPRILAT 2.5 MG INJECTION IV ONE (11:07)
[2024-09-16] MEDS: ENALAPRILAT 2.5 MG INJECTION IV ONE (11:07)
[2024-09-16 11:35] VITALS: BP 160/96; O2SAT 98
== END 2024-09-16 11:56 | disposition home or self-care (01) ==
LOC: ED 08:58
DX: K80.20 Calculus of gallbladder without cholecystitis without obstruction (principal); K40.90 Unilateral inguinal hernia, without obstruction or gangrene, not specified as recurrent; M51.369 Other intervertebral disc degeneration, lumbar region without mention of lumbar back pain or lower extremity pain; R10.9 Unspecified abdominal pain; R11.2 Nausea with vomiting, unspecified; I10 Essential (primary) hypertension; Z79.899 Other long term (current) drug therapy; Z59.811 Housing instability, housed, with risk of homelessness
CPT/HCPCS: 36000; 36415; 74176; 80053; 81001; 82150; 83605; 84484; 85025; 93005; 96374; 96375; 99284; J2405